=== PATIENT | male | born 1940 | race Caucasian/White ===

== ENCOUNTER → 2016-04-21 | Outpatient (CLI) | payer OTHER | LOC: FIMAGING 13:42 | PROVIDERS: ATTEND Neurological Surgery | DX: M50.321 Other cervical disc degeneration at C4-C5 level (principal); M50.322 Other cervical disc degeneration at C5-C6 level; M50.323 Other cervical disc degeneration at C6-C7 level; M12.88 Other specific arthropathies, not elsewhere classified, other specified site; M48.02 Spinal stenosis, cervical region; M99.71 Connective tissue and disc stenosis of intervertebral foramina of cervical region ==

== ENCOUNTER 2016-09-29 07:57 | Outpatient (CLI) | payer OTHER ==
[~2016-09-29 07:57] MED LIST: NS 1,000 ML IV SCH
[2016-09-29] MEDS ORDERED: fentaNYL 100 MCG/2 ML INJ ONE (08:11)
[2016-09-29] MEDS ORDERED: MIDAZOLAM 2 MG/2 ML VIAL ONE (08:11)
[2016-09-29] MEDS ORDERED: NALOXONE HCL 0.4 MG/ML INJ ONE (08:11)
[2016-09-29] MEDS ORDERED: FLUMAZENIL 0.5 MG/5 ML MDV IVP ONE (08:11)
== END 2016-09-29 10:20 | disposition home or self-care (01) ==
LOC: FIMAGING 07:57
PROVIDERS: ATTEND Physician Assistant Surgical
DX: M48.06 Spinal stenosis, lumbar region (principal); M51.26 Other intervertebral disc displacement, lumbar region; M12.88 Other specific arthropathies, not elsewhere classified, other specified site; M99.73 Connective tissue and disc stenosis of intervertebral foramina of lumbar region; M43.16 Spondylolisthesis, lumbar region
CPT/HCPCS: 72148; 99152; 99153; J2250; J3010; J2310

== ENCOUNTER 2016-10-29 05:46 | Inpatient (IN) | payer OTHER ==
[2016-10-29] MEDS ORDERED: ceFAZolin 2 GM/DEXTROSE 100 ML IV ONE (06:07)
[2016-10-29] MEDS ORDERED: GABAPENTIN 300 MG CAP PO ONE (06:07)
[2016-10-29] MEDS ORDERED: morphINE SR 15 MG TAB PO ONE (06:07)
[2016-10-29] MEDS ORDERED: morphINE PF 5 MG/10 ML INJ IT ONE (06:07)
[2016-10-29] MEDS ORDERED: ACETAMINOPHEN 500 MG TAB PO ONE (06:07)
[2016-10-29] MEDS ORDERED: LR 1,000 ML IV ONE (06:08)
[2016-10-29] MEDS ORDERED: LIDOCAINE 1% 2 ML INJ ID PRN (06:08)
--- NOTE | 2016-10-29 06:48 | PDANEPAE ---
ANE History of Present Illness 76 yo M w lumbar radiculopathy here for TLIF, hemilaminectomy ANE Past Medical History - Cardiovascular History Hx Hypertension: No Hx Arrhythmias: No Hx Chest Pain: No Hx Coronary Artery / Peripheral Vascular Disease: No Hx CHF / Valvular Disease: No Hx Palpitations: No - Pulmonary History Hx COPD: No Hx Asthma/Reactive Airway Disease: No Hx Recent Upper Respiratory Infection: No Hx Oxygen in Use at Home: No Hx Sleep Apnea: No Sleep Apnea Screening Result - Last Documented: Negative - Neurologic History Hx Cerebrovascular Accident: No Hx Seizures: No Hx Dementia: No Neurologic History Comment: remote hx migraines -ended 2011. - Endocrine History Hx Diabetes: No - Renal History Hx Renal Disorders: Yes Renal History Comment: Kidney stone 2006 - Liver History Hx Hepatic Disorders: No - Neurological & Psychiatric Hx Hx Neurological and Psychiatric Disorders: Yes Neurological / Psychiatric History Comment: occ low back pain w/R leg pain- since July 2015. minimal pain last 4 wks. 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 bilat shoulder pain - Chronic Pain History Chronic Pain: Yes (back,R leg) - Surgical History Prior Surgeries: knee surgeries 's,. Esophogus repair for Boerhaave Syndrome -2007. colonoscopy 2013, endoscopy. tonsillectomy child ANE Review of Systems Review of Systems: - Exercise capacity METS (RN): 4 METS ANE Patient History - Allergies Allergies/Adverse Reactions: No Known Allergies Allergy (Verified 10/13/16 15:49) - Home Medications Home medications: home medication list seen and reviewed Home Medications: Hydrocodone/Acetaminophen [King 7.5-325 Tablet] 1 each PO BID 09/28/16 [Last Taken 10/28/16] LORazepam [Ativan (*)] 2 mg PO HS 09/28/16 [Last Taken 10/28/16] Omeprazole [Prilosec 20 mg] 40 mg PO DAILY 09/28/16 [Last Taken 10/28/16] Zolpidem Tartrate [Ambien 10 mg] 10 mg PO HS 09/28/16 [Last Taken 10/28/16] traZODone [traZODONE 100MG (*)] 200 mg PO HS 09/28/16 [Last Taken 10/28/16] Gabapentin [Neurontin 400 MG (*)] 400 mg PO TID 10/07/16 [Last Taken 10/28/16] - NPO status NPO Status: no food or drink >8 hours NPO Since - Liquids (Date): 10/28/16 NPO Since - Liquids (Time): 22:00 NPO Since - Solids (Date): 10/28/16 NPO Since - Solids (Time): 18:30 - Anes Hx Anes Hx: no prior problems - Smoking Hx Smoking Status: Former smoker - Alcohol Use Alcohol Use: None - Family Anes Hx Family Anes Hx: none Family Hx Anesthesia Complications: none ANE Labs/Vital Signs - Vital Signs Vital Signs: reviewed preoperatively; see RN documention for details Height: 180.34 cm Weight: 77.564 kg ANE Physical Exam - Airway Neck exam: FROM Mallampati Score: Class 2 Mouth exam: normal dental/mouth exam - Pulmonary Pulmonary: no respiratory distress, clear to auscultation - Cardiovascular Cardiovascular: regular rate and rhythym, no murmur, rub, or gallop - ASA Status ASA Status: II ANE Anesthesia Plan Anesthesia Plan: general endotracheal anesthesia Lines/Monitors: arterial line
[2016-10-29] MEDS ORDERED: MIDAZOLAM 2 MG/2 ML VIAL IVP ONE (06:49)
--- NOTE | 2016-10-29 06:55 | PDHPUP ---
History & Physical Update H&P update statement: This history and physical update is based on an assessment of the patient which was completed after admission or registration (within 24 hours), but prior to the surgery/procedure. H&P update: H&P reviewed & patient examined, no change in patient's condition since H&P completed (Consents signed and site marked.)
[2016-10-29] MEDS ORDERED: BUPIVACAINE 0.25% 30 ML SDV ONE (06:56)
[2016-10-29] MEDS ORDERED: THROMBIN (BOVINE) 20,000 UNIT VIAL TP ONE (06:56)
[2016-10-29] MEDS ORDERED: CITRATE DEXTROSE SOLN 500 ML BAG ONE (06:56)
[2016-10-29] MEDS ORDERED: CHLORHEXIDINE GLUC HIBICLENS 118 ML BTL TP ONE (06:56)
[2016-10-29] MEDS ORDERED: BACITRACIN 50,000 UNITS/10 ML SYR IRR ONE (06:57)
[2016-10-29] MEDS ORDERED: morphINE PF 10 MG/10 ML INJ IT ONE (07:00)
[2016-10-29] MEDS ORDERED: fentaNYL 100 MCG/2 ML INJ ONE (07:04)
[2016-10-29] MEDS ORDERED: PROPOFOL 200 MG/20 ML VIAL ONE (07:04)
[2016-10-29] MEDS ORDERED: REMIFENTANIL HCL 1 MG VIAL ONE ×2 (07:04→09:44)
[2016-10-29] MEDS ORDERED: PROPOFOL/EMULSION 500 MG/50 ML BOTTLE IV ONE ×2 (07:05→09:44)
[2016-10-29] MEDS ORDERED: LIDOCAINE 2% 100 MG/5 ML SYR ONE (07:09)
[2016-10-29] MEDS ORDERED: ROCURONIUM 50 MG/5 ML VIAL ONE ×2 (07:09→08:14)
[2016-10-29] MEDS ORDERED: PHENYLEPHRINE 10 MG/ML SDV ONE (07:59)
[2016-10-29] MEDS ORDERED: DEXAMETHASONE 4 MG/ML VIAL ONE (08:37)
[2016-10-29] MEDS ORDERED: ONDANSETRON 4 MG/2 ML VIAL ONE (08:37)
[2016-10-29] MEDS ORDERED: ceFAZolin 1 GM VIAL ONE (11:01)
[2016-10-29] MEDS ORDERED: HYDROmorphONE/DILAUDID 2 MG/ML INJ ONE (11:14)
[2016-10-29] MEDS ORDERED: ONDANSETRON 4 MG/2 ML VIAL IVP PRN ×2 (11:47→11:59)
[2016-10-29] MEDS ORDERED: fentaNYL 100 MCG/2 ML INJ IVP PRN (11:47)
[2016-10-29] MEDS ORDERED: MEPERIDINE 25 MG/ML SYR IVP PRN (11:47)
[2016-10-29] MEDS ORDERED: HYDROmorphONE/DILAUDID 1 MG/ML INJ IVP PRN (11:47)
[2016-10-29] MEDS ORDERED: NALOXONE HCL 0.4 MG/ML INJ IVP PRN (11:47)
[2016-10-29] MEDS ORDERED: PROMETHAZINE HCL 25 MG/ML INJ IVP PRN (11:47)
--- NOTE | 2016-10-29 11:48 | POSTANESTH ---
Post Anesthetic Evaluation Cardiovascular Status: Normal, Stable, Similar to Pre-Op Cond Respiratory Status: Normal, Stable, Similar to Pre-op Cond. Level of Consciousness/Mental Status: Can Participate in Eval, Alert and Oriented Pain Control: Adequate, Prn Tx Ordered Nausea/Vomiting Control: Adequate, Prn Tx Ordered Complications Possibly Related to Anesthesia: None Noted
[2016-10-29] MEDS ORDERED: LACTULOSE 20 GM/30 ML UDCUP PO PRN (11:59)
[2016-10-29] MEDS ORDERED: METHOCARBAMOL 750 MG TAB PO PRN (11:59)
[2016-10-29] MEDS ORDERED: BISACODYL 10 MG SUPP PR PRN (11:59)
[2016-10-29] MEDS ORDERED: diphenhydrAMINE 25 MG CAP PO PRN (11:59)
[2016-10-29] MEDS ORDERED: MAGNESIUM HYDROXIDE 30 ML UDCUP PO PRN (11:59)
[2016-10-29] MEDS ORDERED: NS 1,000 ML IV SCH (12:00)
--- NOTE | 2016-10-29 12:31 | POSTOPPROG ---
Post Op Note Date of Operation: 10/29/16 Surgeon: Daron Clark Progressive Die Maker: Glo Dickerson PA-C Anesthesiologist: Lucero Anesthesia: GET(General Endotracheal) Pre-op Diagnosis: lumbar stenosis, radiculopathy Post-op Diagnosis: same Indication: nerve compression Procedure: L2/3/4 heminlaminectomies with L4-S1 TLIF and L4-S1 posterior fusion Findings: Please see dictation Inf/Abcess present in the surg proc area at time of surgery?: No Depth: Organ Space EBL: 50-100 Complications: none Drains: Jean Carlos Cuevas Specimen(s): none PA Addendum - Addendum .: S: Pt resting in bed, denies back or leg pain O: AAOx3 NAD VSS MAEx4 Motor 5/5 BUE/BLE Incision dressed cdi JPx1 A: 76 yo F s/p L2/3/4 heminlaminectomies with L4-S1 TLIF and L4-S1 posterior fusion P: PT/OT Pain management Brace when OOB TEDs, SCDS, lovenox POD#1 Post op xrays pending Duramorph given Follow ALEXIA drain output DC faith POD#1 Call NS with any issues D/w Dr Clark
[2016-10-29] MEDS: ceFAZolin 2 GM/DEXTROSE 100 ML IV SCH ×2 (14:23→21:30)
[2016-10-29] MEDS: ACETAMINOPHEN 500 MG TAB PO SCH ×2 (14:24→21:26)
[2016-10-29] MEDS: GABAPENTIN 400 MG CAP PO SCH ×2 (16:51→21:28)
--- NOTE | 2016-10-29 17:46 | GOP ---
[f rep st] OPERATIVE REPORT DATE OF OPERATION: 10/29/2016 SURGEON: Daron Clark MD BRIM PLATER: KEM Yang. ANESTHESIA: General. PREOPERATIVE DIAGNOSIS: 1. 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 2. Low back pain with lower extremity claudication. 3. Radiculopathy. 4. Treatment refractory to nonoperative intervention. POSTOPERATIVE DIAGNOSIS: 1. 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 2. Low back pain with lower extremity claudication. 3. Radiculopathy. 4. Treatment refractory to nonoperative intervention. PROCEDURE PERFORMED: 1. Posterior arthrodesis with approach to L2, L3, L4, L5, and S1. 2. Posterolateral fusion with bilateral pedicle screw placement at L4, L5, and S1 from the [employer] 4.75 Solera system. 3. Right-sided L2-L3 hemilaminotomy with mesial facetectomy and central decompression. 4. Right-sided L3-L4 hemilaminotomy with mesial facetectomy and central decompression. 5. Right-sided L4-L5 hemilaminotomy with mesial facetectomy, foraminotomy, nerve root decompression. 6. Right-sided L5-S1 hemilaminotomy with mesial facetectomy, foraminotomy, nerve root decompression. 7. Right-sided L4-5 transforaminal lumbar interbody fusion with a 7 x 26 mm titanium coated PEEK cage filled with morselized autograft and allograft. 8. Right-sided L5-S1 transforaminal lumbar interbody fusion with a 7 x 26 mm titanium coated PEEK cage filled with morselized autograft and allograft. 9. Posterolateral fusion on the left between L4 and S1 with morselized autograft and allograft. 10. Use of intraoperative 3D Stealth navigation. 11. Use of intraoperative fluoroscopy, less than 1 hour fluoroscopy time. 12. Use of neuromonitoring. 13. Use of operating microscope. 14. Injection of preservative-free intrathecal narcotics. FINDINGS: per imaging SPECIMENS: None. INDICATIONS: The patient is a 76-year-old gentleman who presented with lower extremity claudication and back pain. He had evidence of severe spinal stenosis at L2 through L4 with spondylosis L2 through S1. After a discussion of risks, benefits, and alternatives and of failing nonoperative intervention, we decided to proceed forth with surgery as described above. DESCRIPTION OF PROCEDURE: The patient was brought to the operating theater and underwent general endotracheal anesthesia without complications. Venodynes, ISA hose and the appropriate lines were placed by Anesthesia. He was flipped prone onto the Jean Carlos table and all bony processes inspected and padded. The lower lumbar region was prepped and draped in the usual sterile surgical fashion. A time-out was completed per protocol and the patient received antibiotics within 1 hour of incision. Using lateral fluoroscopy and a spinal needle, we then picked our entry point to the L2 through S1 levels. This was marked in the midline, and the incision infiltrated with Marcaine with epinephrine. The incision was taken down with the scalpel blade and using the monopolar, and taken down the midline through the lumbodorsal fascia and a bilateral subperiosteal dissection carried to the transverse processes of L4, L5, and S1. We also identified the right-sided L2 and L3 medial facet joints. Care was taken to preserve the left side L2-L3 and L3-L4. Deep retractors were placed to maintain our exposure. We attached the 3D Stealth navigation clamp to the spinous process of L4 and completed a 3D Stealth navigation spin. Using 3D Stealth navigation, we placed the steamboat pilot holes for the bilateral pedicle screws at L4, L5, and S1. All holes were manually palpated with no evidence of any cortical breaches. We then tapped and placed 6.5 x 55 mm screws on the left side at L4, bilaterally at L5 and bilaterally in the S1. A 6.5 x 45 mm screw was placed on the right side at L4 from the [employer] 4.75 Solera system. Another 3D Stealth navigation spin demonstrated good placement of the hardware. I did replace the bilateral S1 screws with 5 mm longer screws to make them bicortical. At this point, the microscope was brought into the field to assist with microscopic dissection and to maintain illumination and magnification. Using a combination of the bur tip and on the drill but and Kerrison punches, we completed a right-sided L2-L3 and L3-L4 hemilaminotomy with mesial facetectomy and central resection of the ligamentum flavum. Once we felt that both these levels were well decompressed on manual palpation, we moved down to L4-L5 and L5-S1 where we completed a right-sided hemilaminotomy with mesial facetectomy and foraminotomies with resection of the pars between L4-5 and L5- S1. We moved down to L4-L5 where we distracted the interspace and completed a right-side L4-L5 diskectomy. The level was noted to be extremely tight. We completed a right-sided L4-L5 diskectomy and prepared the cartilaginous endplates. We then measured the interbody space and placed a 7 x 26 mm titanium coated PEEK cage filled with morselized autograft and allograft anteriorly towards the midline. We packed additional morcellized autograft in the disk space for the interbody fusion and let down the distraction. We moved down to the right side at L5-S1 where again we completed a right-sided L5-S1 diskectomy. This level was extremely tight as well and we had a difficult time distracting it. We completed a right-sided L5-S1 diskectomy and prepared the cartilaginous endplates. We measured the interbody space and placed a 7 x 26 mm titanium-coated PEEK cage filled with morselized autograft and allograft anteriorly and toward the midline. We let down the distraction, decorticated the bone on the left side between L4 and S1. We irrigated the wound copiously with bacitracin irrigation and placed 2 lordotic rods into the heads of the screws between L4 and S1 and secured them down with cap screws, which were then tightened per the banquet captain's setting. We injected preservative-free intrathecal narcotics. We placed morselized autograft and allograft on the left side between L4 and S1 for the posterolateral fusion. A drain was left in the subfascial space and the wound then closed in multiple layers using Vicryl sutures for the deep layers and Dermabond for the skin. The patient's wounds were dressed sterilely. He was flipped supine onto the transport cart where he was awakened, extubated, and taken to the recovery room in stable condition. There were no complications and no noted changes on neuromonitoring throughout the procedure. COMPLICATIONS: None. ESTIMATED FLUID LOSS: 100 mL. /[id number]/MODL MTDD
[2016-10-29] MEDS: oxyCODONE IR 5 MG TAB PO PRN (20:04)
[2016-10-29] MEDS ORDERED: NON-FORMULARY NEW DRUG (Zolpidem Tartrate [Ambien 10 Mg] 10 MG) PO SCH (21:00)
[2016-10-29] MEDS: traZODone 100 MG TAB PO SCH (21:27)
[2016-10-29] MEDS: SENNOSIDES/DOCUSATE SODIUM TAB PO SCH (21:27)
[2016-10-29] MEDS: ZOLPIDEM TARTRATE 5 MG TAB PO SCH (21:28)
[2016-10-29] MEDS: FAMOTIDINE 20 MG TAB PO SCH (21:28)
[2016-10-29] MEDS: LORazepam 1 MG TAB PO SCH (21:29)
[2016-10-30] MEDS: ONDANSETRON DISINTEGRATING 4 MG TAB PO PRN (02:39)
[2016-10-30] MEDS: ACETAMINOPHEN 500 MG TAB PO SCH (04:57)
[2016-10-30] MEDS ORDERED: PROMETHAZINE HCL 25 MG/ML INJ IVP PRN (05:24)
[2016-10-30] MEDS: GABAPENTIN 400 MG CAP PO SCH ×3 (08:40→21:03)
[2016-10-30] MEDS: FAMOTIDINE 20 MG TAB PO SCH ×2 (08:41→21:03)
[2016-10-30] MEDS: ENOXAPARIN 40 MG/0.4 ML SYR SC SCH (08:41)
[2016-10-30] MEDS: SENNOSIDES/DOCUSATE SODIUM TAB PO SCH ×2 (08:41→21:03)
[2016-10-30] MEDS: PANTOPRAZOLE SODIUM 40 MG TAB PO SCH (08:41)
--- NOTE | 2016-10-30 08:44 | NEUSURGPN ---
Date of Surgery: 10/29/16 Post Op Day: 1 Assessment/Plan: 76 yo male s/p TLIF at L4-S1 - neuro stable - pain control, try [place] instead of Oxycodone due to nausea - antiemetics - ALEXIA drain x 1, will plan to remove tomorrow - postop L-spine x-rays - wear brace when out of bed - PT/OT - please contact neurosurgery with any changes in neuro status/exam Discussed with Dr. Clark. Subjective: [place] nauseated all night. Surgical pain controlled. No LE symptoms. Objective: Awake. Alert. PERRL. EOMI Muscle strength full at 5/5 Sensation intact Incision with dressing Catheter Insertion Date: 10/29/16 - Physician Discussed Patient with : Eduardo Neurosurgery Physical Exam - Vitals, I&O, Labs I and O 10/29/16 10/30/16 10/31/16 05:59 05:59 05:59 Intake Total 1875 Output Total 1575 Balance 300 Weight 77.564 kg Intake: Oral (ml) 500 IV Intake (ml) 500 IV Infused (ml) 875 Ns 1,000 ml @ 75 mls/hr 675 IV CONT JENNA Rx#: [id number] ceFAZolin 2 GM/DEXTROSE 200 100 ml @ 200 mls/hr IV Q8HRS JENNA Rx#:[id number] Output: Urine (ml) 800 Catheter 800 Emesis (ml) 500 ALEXIA Drain Output (ml) 275 Back 275 Vital Signs Temp Pulse Resp BP Pulse Ox 36.9 C 75 16 108/67 93 10/30/16 07:44 10/30/16 07:44 10/30/16 07:44 10/30/16 07:44 10/30/16 07:44 ICD10 Worksheet Patient Problems: Problems Problem Status Onset Lumbar stenosis Acute - ICD10 Problem Qualifiers (1) Lumbar stenosis
[2016-10-30] MEDS ORDERED: NON-FORMULARY NEW DRUG (Omeprazole [Prilosec 20 Mg] 40 MG) PO SCH (09:00)
[2016-10-30] MEDS: HYDROCODONE/APAP 5/325 TAB PO PRN ×3 (10:02→19:09)
--- NOTE | 2016-10-30 16:55 | ASMTCMCOM ---
CM Note CM Note Notes: Pt is a 76 y/o man admitted w/ central shoxs, back pain, djd, and spondylolisthesis. Pt had L2/3/4 heminlaminectomies with L4-S1 TLIF and L4-S1 posterior fusion procedure performed on 10/29/16. Pt had another surgerical intervention today (L2/3/5 hemilaminectomy with central decompression, TLIF Lum M[place] Fusion W/Stealth L4/L5/S1 with PSF L4-S1 with neuro monitoring. CM met w/ pt and for dispo planning. PT is recommending HC. OT is recommending home. Pt and would like to have HC through [facility]. CM to follow. Date Signed: 10/30/2016 04:54 PM Electronically Signed By:MOISES Lara
[2016-10-30] MEDS: traZODone 100 MG TAB PO SCH (21:02)
[2016-10-30] MEDS: ZOLPIDEM TARTRATE 5 MG TAB PO SCH (21:03)
[2016-10-30] MEDS: LORazepam 1 MG TAB PO SCH (21:03)
[2016-10-31] MEDS: HYDROCODONE/APAP 5/325 TAB PO PRN ×4 (03:52→20:08)
--- NOTE | 2016-10-31 06:35 | NEUSURGPN ---
Date of Surgery: 10/29/16 Post Op Day: 2 Assessment/Plan: 76 yo male s/p TLIF at L4-S1 - neuro stable -Patient feels his pain is controlled with current medications -May discharge home later this AM pending PT/OT recommendations -ALBERT HALE today - L-spine x-rays stable - Wear brace when out of bed - PT/OT - please contact neurosurgery with any changes in neuro status/exam Subjective: Patient feeling well this am Objective: Objective: Awake. Alert. PERRL. EOMI Muscle strength full at 5/5 Sensation intact Incision with dressing Neuro Check Frequency: per routine Urinary Catheter in Place: No Catheter Insertion Date: 10/29/16 - Physician Discussed Patient with : Eduardo Neurosurgery Physical Exam - Vitals, I&O, Labs I and O 10/30/16 10/31/16 11/01/16 05:59 05:59 05:59 Intake Total 1875 550 Output Total 1575 765 Balance 300 -215 Weight 77.564 kg Intake: Oral (ml) 500 550 IV Intake (ml) 500 IV Infused (ml) 875 Ns 1,000 ml @ 75 mls/hr 675 IV CONT JENNA Rx#: [id number] ceFAZolin 2 GM/DEXTROSE 200 100 ml @ 200 mls/hr IV Q8HRS JENNA Rx#:[id number] Output: Urine (ml) 800 725 Catheter 800 Urinal 725 Emesis (ml) 500 ALEXIA Drain Output (ml) 275 40 Back 275 40 Other: Number of Voids Toilet 2 Urinal 1 Vital Signs Temp Pulse Resp BP Pulse Ox 36.9 C 86 16 90/59 L 91 L 10/31/16 04:00 10/31/16 04:00 10/31/16 04:00 10/31/16 04:00 10/31/16 04:00 ICD10 Worksheet Patient Problems: Problems Problem Status Onset Lumbar stenosis Acute
[2016-10-31] MEDS: ENOXAPARIN 40 MG/0.4 ML SYR SC SCH (08:07)
[2016-10-31] MEDS: GABAPENTIN 400 MG CAP PO SCH ×3 (08:08→21:12)
[2016-10-31] MEDS: FAMOTIDINE 20 MG TAB PO SCH ×2 (08:08→20:08)
[2016-10-31] MEDS: SENNOSIDES/DOCUSATE SODIUM TAB PO SCH ×2 (08:08→20:08)
[2016-10-31] MEDS: PANTOPRAZOLE SODIUM 40 MG TAB PO SCH (08:08)
[2016-10-31] MEDS: DIAZEPAM 10 MG/2 ML SYR IVP PRN (10:56)
[2016-10-31] MEDS: METHOCARBAMOL 750 MG TAB PO SCH ×2 (11:33→20:07)
[2016-10-31] MEDS: oxyCODONE IR 5 MG TAB PO PRN (12:05)
[2016-10-31] MEDS: ONDANSETRON DISINTEGRATING 4 MG TAB PO PRN (12:30)
[2016-10-31] MEDS: POLYETHYLENE GLYCOL 3350 17 GM PKT PO PRN (15:45)
[2016-10-31] MEDS: traZODone 100 MG TAB PO SCH (20:07)
[2016-10-31] MEDS: LORazepam 1 MG TAB PO SCH (21:12)
[2016-10-31] MEDS: ZOLPIDEM TARTRATE 5 MG TAB PO SCH (21:12)
[2016-11-01] MEDS: HYDROCODONE/APAP 5/325 TAB PO PRN ×2 (02:18→08:21)
[2016-11-01] MEDS: METHOCARBAMOL 750 MG TAB PO SCH ×3 (03:25→20:16)
[2016-11-01] MEDS: GABAPENTIN 400 MG CAP PO SCH (08:21)
[2016-11-01] MEDS: ENOXAPARIN 40 MG/0.4 ML SYR SC SCH (08:21)
[2016-11-01] MEDS: SENNOSIDES/DOCUSATE SODIUM TAB PO SCH ×2 (08:22→20:15)
[2016-11-01] MEDS: FAMOTIDINE 20 MG TAB PO SCH ×2 (08:22→20:15)
[2016-11-01] MEDS: PANTOPRAZOLE SODIUM 40 MG TAB PO SCH (08:22)
[2016-11-01] MEDS: oxyCODONE IR 5 MG TAB PO PRN ×3 (12:32→20:17)
--- NOTE | 2016-11-01 13:05 | NEUSURGPN ---
Date of Surgery: 10/29/16 Post Op Day: 3 Assessment/Plan: 76 yo male s/p TLIF at L4-S1 -Patient was going to dc home yesterday, after working with PT has been experiencing severe right buttock and right lateral leg pain -We do not recommend a new MRI at this time -Will give patient one dose Toradol today -Will increase gabapentin dose -Will try Diludid today to help manage pain of right leg -L-spine x-rays stable -Wear brace when out of bed -PT/OT -please contact neurosurgery with any changes in neuro status/exam Spoke with Dr Clark about patient as well Subjective: Patient in 11/17 pain of right leg Objective: Awake. Alert. PERRL. EOMI Muscle strength full at 5/5 Sensation intact Incision with dressing Neuro Check Frequency: per routine Urinary Catheter in Place: No Catheter Insertion Date: 10/29/16 - Physician Discussed Patient with Dr.: Clark Neurosurgery Physical Exam - Vitals, I&O, Labs I and O 10/31/16 11/01/16 11/02/16 05:59 05:59 05:59 Intake Total 550 550 Output Total 765 510 525 Balance -215 40 -525 Intake: Oral (ml) 550 550 Output: Urine (ml) 725 500 525 Urinal 725 500 525 ALEXIA Drain Output (ml) 40 10 Back 40 10 Other: Output Comment Incontinence inc of urine x1 overnight in bed Number of Voids Incontinence 1 Toilet 2 Urinal 1 1 2 Vital Signs Temp Pulse Resp BP Pulse Ox 37.1 C 90 16 105/65 89 L 11/01/16 07:47 11/01/16 11:44 11/01/16 11:44 11/01/16 11:44 11/01/16 11:44 ICD10 Worksheet Patient Problems: Problems Problem Status Onset Lumbar stenosis Acute
[2016-11-01] MEDS ORDERED: KETOROLAC 15 MG/1 ML SDV IVP ONE (13:06)
[2016-11-01] MEDS ORDERED: HYDROmorphONE/DILAUDID 1 MG/ML INJ IVP PRN (13:07)
[2016-11-01] MEDS ORDERED: GABAPENTIN 400 MG CAP PO SCH (13:08)
[2016-11-01] MEDS: oxyCODONE CR 15 MG TAB PO SCH ×2 (13:34→20:17)
[2016-11-01] MEDS: GABAPENTIN 300 MG CAP PO SCH ×2 (15:53→21:44)
[2016-11-01] MEDS: POLYETHYLENE GLYCOL 3350 17 GM PKT PO PRN (20:15)
[2016-11-01] MEDS: traZODone 100 MG TAB PO SCH (21:43)
[2016-11-01] MEDS: LORazepam 1 MG TAB PO SCH (21:43)
[2016-11-01] MEDS: ZOLPIDEM TARTRATE 5 MG TAB PO SCH (21:44)
[2016-11-02] MEDS: oxyCODONE IR 5 MG TAB PO PRN ×4 (00:05→23:13)
[2016-11-02] MEDS: METHOCARBAMOL 750 MG TAB PO SCH ×3 (04:27→18:41)
--- NOTE | 2016-11-02 07:21 | NEUSURGPN ---
Assessment/Plan: 76 yo male s/p TLIF at L4-S1, with increased low back pain - Increased low back pain and medications are not covering pain, Dilaudid helped over night. Will try PO Dilaudid this morning -Will give patient one dose Toradol today -L-spine x-rays stable -Wear brace when out of bed -PT/OT -please contact neurosurgery with any changes in neuro status/exam -Dispo planning once pain under better control Subjective: low back pain, Dilaudid overnight helped Objective: NAD A&O x3 MAEX 4 5/5 and equal in BEU and BLE. Sensation intact. Incision c/d/i Catheter Insertion Date: 10/29/16 - Physician Discussed Patient with : Eduardo Neurosurgery Physical Exam - Vitals, I&O, Labs I and O 11/01/16 11/02/16 11/03/16 05:59 05:59 05:59 Intake Total 550 750 Output Total 510 525 Balance 40 225 Intake: Oral (ml) 550 750 Output: Urine (ml) 500 525 Urinal 500 525 ALEXIA Drain Output (ml) 10 Back 10 Other: Intake Quantity Yes Sufficient Output Comment Incontinence inc of urine x1 overnight in bed Number of Voids Incontinence 1 Toilet 1 Urinal 1 2 Vital Signs Temp Pulse Resp BP Pulse Ox 36.6 C 77 17 112/69 92 11/02/16 04:00 11/02/16 04:00 11/02/16 04:00 11/02/16 04:00 11/02/16 04:00 ICD10 Worksheet Patient Problems: Problems Problem Status Onset Lumbar stenosis Acute
[2016-11-02] MEDS: ENOXAPARIN 40 MG/0.4 ML SYR SC SCH (08:06)
[2016-11-02] MEDS: PANTOPRAZOLE SODIUM 40 MG TAB PO SCH (08:06)
[2016-11-02] MEDS: SENNOSIDES/DOCUSATE SODIUM TAB PO SCH ×2 (08:06→20:54)
[2016-11-02] MEDS: FAMOTIDINE 20 MG TAB PO SCH ×2 (08:07→20:54)
[2016-11-02] MEDS: GABAPENTIN 300 MG CAP PO SCH ×3 (08:07→20:54)
[2016-11-02] MEDS: oxyCODONE CR 15 MG TAB PO SCH ×2 (08:07→20:54)
[2016-11-02] MEDS: HYDROmorphONE/DILAUDID 2 MG TAB PO PRN ×3 (09:50→14:19)
[2016-11-02] MEDS: ACETAMINOPHEN 500 MG TAB PO SCH ×3 (11:33→20:55)
[2016-11-02] MEDS: LORazepam 1 MG TAB PO SCH (20:55)
[2016-11-02] MEDS: traZODone 100 MG TAB PO SCH (20:55)
[2016-11-02] MEDS: ZOLPIDEM TARTRATE 5 MG TAB PO SCH (20:55)
[2016-11-03] MEDS: oxyCODONE IR 5 MG TAB PO PRN ×2 (03:23→12:51)
[2016-11-03] MEDS: ACETAMINOPHEN 500 MG TAB PO SCH ×3 (05:49→21:10)
--- NOTE | 2016-11-03 07:59 | NEUSURGPN ---
Assessment/Plan: 76 yo male s/p TLIF at L4-S1, with increased low back pain - Increased low back pain and medications are not covering pain, Dilaudid helped over night. Will try PO Dilaudid this morning -Patient on Dilaudid, Robaxin, MsContin, will add in Lidoderm patches. -L-spine x-rays stable -Wear brace when out of bed -PT/OT -please contact neurosurgery with any changes in neuro status/exam -Dispo planning once pain under better control - Patient was seen by Dr. Clark and myself Subjective: right gluteal pain, Denies any left leg pain Objective: NAD A&Ox3 MAEx4 5/5 and equal in BUE and BLE. Incision c/d/i Catheter Insertion Date: 10/29/16 - Physician Patient Seen by : Eduardo Neurosurgery Physical Exam - Vitals, I&O, Labs I and O 11/02/16 11/03/16 11/04/16 05:59 05:59 05:59 Intake Total 750 2000 Output Total 525 600 Balance 225 1400 Intake: Oral (ml) 750 2000 Output: Urine (ml) 525 600 Incontinence 600 Urinal 525 Other: Intake Quantity Yes Yes Sufficient Number of Voids Incontinence 1 Toilet 1 Urinal 2 Vital Signs Temp Pulse Resp BP Pulse Ox 36.9 C 92 16 144/92 H 97 11/03/16 02:57 11/03/16 02:57 11/03/16 02:57 11/03/16 02:57 11/03/16 02:57 ICD10 Worksheet Patient Problems: Problems Problem Status Onset Lumbar stenosis Acute
[2016-11-03] MEDS: LIDOCAINE 5% 1 EA PATCH TD SCH ×2 (10:01→10:11)
[2016-11-03] MEDS: ENOXAPARIN 40 MG/0.4 ML SYR SC SCH (10:02)
[2016-11-03] MEDS: oxyCODONE CR 15 MG TAB PO SCH (10:03)
[2016-11-03] MEDS: FAMOTIDINE 20 MG TAB PO SCH ×2 (10:03→21:05)
[2016-11-03] MEDS: PANTOPRAZOLE SODIUM 40 MG TAB PO SCH (10:03)
[2016-11-03] MEDS: HYDROmorphONE/DILAUDID 2 MG TAB PO PRN ×4 (10:03→21:08)
[2016-11-03] MEDS: SENNOSIDES/DOCUSATE SODIUM TAB PO SCH ×2 (10:03→21:11)
[2016-11-03] MEDS: GABAPENTIN 300 MG CAP PO SCH ×3 (10:03→21:10)
--- NOTE | 2016-11-03 14:01 | ASMTCMCOM ---
CM Note CM Note Notes: Yesterday [facility] ([facility] was alerted in case pt needs HHC. CM to follow. Date Signed: 11/03/2016 02:00 PM Electronically Signed By:SARY Newell
[2016-11-03] MEDS ORDERED: GABAPENTIN 300 MG CAP PO ONE (18:45)
[2016-11-03] MEDS: METHOCARBAMOL 750 MG TAB PO SCH (21:07)
[2016-11-03] MEDS: traZODone 100 MG TAB PO SCH (21:08)
[2016-11-03] MEDS: LORazepam 1 MG TAB PO SCH (21:09)
[2016-11-03] MEDS: ZOLPIDEM TARTRATE 5 MG TAB PO SCH (21:10)
[2016-11-03] MEDS: oxyCODONE CR 30 MG TAB PO SCH (21:10)
[2016-11-03] MEDS: PATCH REMOVAL 1 EA PATCH TD SCH (21:20)
[2016-11-04] MEDS: METHOCARBAMOL 750 MG TAB PO SCH ×4 (00:41→18:18)
[2016-11-04] MEDS: HYDROmorphONE/DILAUDID 2 MG TAB PO PRN ×2 (01:53→22:49)
[2016-11-04] MEDS: ACETAMINOPHEN 500 MG TAB PO SCH ×3 (06:29→21:17)
--- NOTE | 2016-11-04 07:51 | NEUSURGPN ---
Date of Surgery: 10/29/16 Post Op Day: 6 Assessment/Plan: Assessment: 76 yo male s/p TLIF at L4-S1, with increased low back pain after surgery Plan: - Increased low back pain yesterday and medications were not covering pain. Medications adjusted and pt is much better today than yesterday. "I am 150% better" -CT of the L spine shows no complications and expected post op changes with degenerative changes noted-c/w hx -continue with current pain medication plan as he is doing better overall -continue with pain meds and gabapentin -L-spine x-rays stable -Wear brace when out of bed -PT/OT-CPM -encourage ambulation today -please contact neurosurgery with any changes in neuro status/exam -Dispo planning once pain under better control -if continues to improve may be able to dc in next few days -patient d/w Dr Clark Subjective: Awake and alert. NAD. No new events overnight. No hernandez/neck/chest/abd or gu complaints. Objective: AAO x 3, PERRLA/EOMI no droop CN 2-12 grossly intact +lt touch 5/5 BUE/BLE = CDI Neuro Check Frequency: per routine Urinary Catheter in Place: No Catheter Insertion Date: 10/29/16 - Physician Discussed Patient with : Eduardo Neurosurgery Physical Exam - Vitals, I&O, Labs I and O 11/03/16 11/04/16 11/05/16 05:59 05:59 05:59 Intake Total 2000 1350 Output Total 600 1475 Balance 1400 -125 Intake: Oral (ml) 2000 1350 Output: Urine (ml) 600 1475 Incontinence 600 0 Urinal 1475 Other: Intake Quantity Yes Yes Sufficient Number of Voids Incontinence 1 Urinal 1 Vital Signs Temp Pulse Resp BP Pulse Ox 36.6 C 76 14 133/74 H 97 11/03/16 22:35 11/03/16 22:35 11/03/16 22:35 11/03/16 22:35 11/03/16 22:35 ICD10 Worksheet Patient Problems: Problems Problem Status Onset Lumbar stenosis Acute
[2016-11-04] MEDS: oxyCODONE IR 5 MG TAB PO PRN ×4 (08:22→21:18)
[2016-11-04] MEDS: POLYETHYLENE GLYCOL 3350 17 GM PKT PO PRN (08:22)
[2016-11-04] MEDS: FAMOTIDINE 20 MG TAB PO SCH ×2 (08:23→21:20)
[2016-11-04] MEDS: SENNOSIDES/DOCUSATE SODIUM TAB PO SCH ×2 (08:23→21:20)
[2016-11-04] MEDS: PANTOPRAZOLE SODIUM 40 MG TAB PO SCH (08:23)
[2016-11-04] MEDS: oxyCODONE CR 30 MG TAB PO SCH ×2 (08:23→21:19)
[2016-11-04] MEDS: GABAPENTIN 300 MG CAP PO SCH ×3 (08:23→21:17)
[2016-11-04] MEDS: ENOXAPARIN 40 MG/0.4 ML SYR SC SCH (08:24)
[2016-11-04] MEDS: LIDOCAINE 5% 1 EA PATCH TD SCH (08:24)
[2016-11-04] MEDS: DIAZEPAM 5 MG TAB PO PRN (15:00)
[2016-11-04] MEDS: ZOLPIDEM TARTRATE 5 MG TAB PO SCH (21:18)
[2016-11-04] MEDS: traZODone 100 MG TAB PO SCH (21:18)
[2016-11-04] MEDS: LORazepam 1 MG TAB PO SCH (21:18)
[2016-11-04] MEDS: DIAZEPAM 10 MG/2 ML SYR IVP PRN (22:49)
[2016-11-05] MEDS: METHOCARBAMOL 750 MG TAB PO SCH ×3 (00:15→12:58)
[2016-11-05] MEDS: PATCH REMOVAL 1 EA PATCH TD SCH (00:28)
[2016-11-05] MEDS: oxyCODONE IR 5 MG TAB PO PRN ×3 (01:28→15:33)
[2016-11-05] MEDS: DIAZEPAM 5 MG TAB PO PRN (03:00)
[2016-11-05] MEDS: HYDROmorphONE/DILAUDID 2 MG TAB PO PRN (05:22)
[2016-11-05] MEDS: ACETAMINOPHEN 500 MG TAB PO SCH ×2 (05:23→12:58)
[2016-11-05] MEDS: GABAPENTIN 300 MG CAP PO SCH ×3 (05:24→15:33)
--- NOTE | 2016-11-05 07:40 | NEUSURGPN ---
Assessment/Plan: Assessment: 76 yo male s/p TLIF at L4-S1, with increased low back pain after surgery Plan: - Increased low back pain yesterday and medications were not covering pain. Medications adjusted. Pt had a good day yesterday but severe pain overnight. -CT of the L spine shows no complications and expected post op changes with degenerative changes noted-c/w hx -continue with current pain medication plan - DC IV meds -continue with pain meds and gabapentin -L-spine x-rays stable -Wear brace when out of bed -PT/OT-CPM -encourage ambulation today -please contact neurosurgery with any changes in neuro status/exam -Dispo planning once pain under better control -if continues to improve may be able to dc in next few days -patient d/w Dr Clark Subjective: Pt resting in bed, c/o right leg pain overnight. Comfortable at this time reclined in bed. Objective: AAOx3 NAD VSS MAEx4 Motor 5/5 BLE with exception of R EHL 5-/5 +LT Urinary Catheter in Place: No Catheter Insertion Date: 10/29/16 - Physician Discussed Patient with : Eduardo Neurosurgery Physical Exam - Vitals, I&O, Labs I and O 11/04/16 11/05/16 11/06/16 05:59 05:59 05:59 Intake Total 1350 1000 Output Total 1475 300 Balance -125 700 Intake: Oral (ml) 1350 1000 Output: Urine (ml) 1475 300 Incontinence 0 Urinal 1475 300 Other: Intake Quantity Yes Yes Sufficient Number of Voids Toilet 1 Urinal 1 Number of Stools Toilet 1 Vital Signs Temp Pulse Resp BP Pulse Ox 36.8 C 90 16 133/85 H 95 11/04/16 23:55 11/04/16 23:55 11/04/16 23:55 11/04/16 23:55 11/04/16 23:55 ICD10 Worksheet Patient Problems: Problems Problem Status Onset Lumbar stenosis Acute
[2016-11-05 07:59] VITALS: PULSE 71; RESP 14; TEMP 98.1; O2SAT 97
[2016-11-05] MEDS: FAMOTIDINE 20 MG TAB PO SCH (09:59)
[2016-11-05] MEDS: oxyCODONE CR 30 MG TAB PO SCH (09:59)
[2016-11-05] MEDS: ENOXAPARIN 40 MG/0.4 ML SYR SC SCH (09:59)
[2016-11-05] MEDS: SENNOSIDES/DOCUSATE SODIUM TAB PO SCH (10:00)
[2016-11-05] MEDS: PANTOPRAZOLE SODIUM 40 MG TAB PO SCH (10:00)
[2016-11-05] MEDS: LIDOCAINE 5% 1 EA PATCH TD SCH (10:00)
[2016-11-05 12:07] VITALS: BP 78/54
--- NOTE | 2016-11-05 13:37 | PDIAF ---
- Diagnosis Code Status: Full Code - Medication Management Discharge Medications: Medications to Continue on Transfer LORazepam [Ativan (*)] 2 mg PO HS 09/28/16 [Last Taken 10/28/16] Omeprazole [Prilosec 20 mg] 40 mg PO DAILY 09/28/16 [Last Taken 10/28/16] Zolpidem Tartrate [Ambien 10 mg] 10 mg PO HS 09/28/16 [Last Taken 10/28/16] traZODone [traZODONE 100MG (*)] 200 mg PO HS 09/28/16 [Last Taken 10/28/16] Acetaminophen [Tylenol ES 500 mg (*)] 1,000 mg PO Q8 tab 11/05/16 [Last Taken Unknown] Diazepam [Valium 5 MG (*)] 5 mg PO Q4 PRN #90 tab 11/05/16 [Last Taken Unknown] Gabapentin [Neurontin 300 MG (*)] 600 mg PO QID #120 cap 11/05/16 [Last Taken Unknown] oxyCODONE CR [Oxycontin] 30 mg PO BID #60 tab 11/05/16 [Last Taken Unknown] oxyCODONE IR [Oxycodone Ir (*)] 5 - 10 mg PO Q4HRS PRN #90 tab 11/05/16 [Last Taken Unknown] tiZANidine HCL [Zanaflex] 4 mg PO Q8 PRN #60 tab 11/05/16 [Last Taken Unknown] Discharge Medications: Refer to the Discharge Home Medication list for PRN reason. PICC Care - Routine: N/A - Orders Services needed: Home Care, Registered Nurse, Physical Therapy, Occupational Therapy Home Care Face to Face: I certify that this patient was under my care and that I had the required [id number] encounter meeting the encounter requirements on the discharge day. My findings support the fact that the patient is homebound as defined in Home Care Face to Face Continued: CMS Chapter 7 Medicare Benefits Manual 30.1.1 , The condition of the patient is such that there exists a normal inability to leave home and consequently, leaving home would require a considerable and taxing effort. Diet Recommendation: no restrictions on diet Diet Texture: Regular Texture Diet Miller: Not applicable Wound Care Instructions: keep incision clean and dry Activity/Weight Bearing Restrictions: 5-10 lbs. no bending lifting or twisting. wear brace when out of bed - Follow Up Care Current Providers and Referrals: Aston Bishop MD [Primary Care Provider] - Daron Clark MD [Medical Doctor] - follow up in 2 weeks
--- NOTE | 2016-11-05 16:22 | ASMTCMCOM ---
CM Note CM Note Notes: Pt medically stable for d/c w [facility] and support. Date Signed: 11/05/2016 04:21 PM Electronically Signed By:SARY Newell
--- NOTE | 2016-11-06 15:20 | ASDISCHSUM ---
Discharge Information Plan Status:Home with Home Health Medically Cleared to Leave: Discharge Date:11/05/2016 04:47 PM CM D/C Disposition:Home Health Service ADT D/C Disposition:Home Health Service Projected Discharge Date:11/03/2016 11:00 AM Transportation at D/C: Discharge Delay Reason: Follow-Up Date:11/03/2016 11:00 AM Discharge Slot: Final Diagnosis: Placement Information Referral Type:*Home Health Care Services Referral ID:[id number] Provider Name:[facility] Address 1:[address] Address 2: City:[place] Selection Factors: State:[place] Patient Contact Information Contact Name:CORY Relationship:Son Address:[address] Work Phone: City:[place] Alternate Phone: State/Zip Code:[place] [address] Email: Financial Information Financial Class: Primary Plan Desc:MEDICARE INPATIENT Primary Plan Number:[id number] Secondary Plan Desc: [employer] Secondary Plan Number:[id number] Assessment Information [facility] CM Progress Note CM Note CM Note Notes: Pt is a 76 y/o man admitted w/ central shoxs, back pain, djd, and spondylolisthesis. Pt had L2/3/4 heminlaminectomies with L4-S1 TLIF and L4-S1 posterior fusion procedure performed on 10/29/16. Pt had another surgerical intervention today (L2/3/5 hemilaminectomy with central decompression, TLIF Lum Mccullough Fusion W/Stealth L4/L5/S1 with PSF L4-S1 with neuro monitoring. CM met w/ pt and for dispo planning. PT is recommending HC. OT is recommending home. Pt and would like to have HC through [facility]. CM to follow. Date Signed: 10/30/2016 04:54 PM Electronically Signed By:MOISES Lara BC CM Progress Note CM Note CM Note Notes: Yesterday [facility] ([place]) was alerted in case pt needs C. CM to follow. Date Signed: 11/03/2016 02:00 PM Electronically Signed By:SARY Newell [facility] CM Progress Note CM Note CM Note Notes: Pt medically stable for d/c w [facility] and support. Date Signed: 11/05/2016 04:21 PM Electronically Signed By:SARY Newell Intervention Information Intervention Type:*IM-Signed Date of Service:11/05/2016 12:16 PM Patient Type:Inpatient Staff Member:Rahda Yousif Hours: Discipline: Severity: Comment:
== END 2016-11-05 16:47 | disposition home health service (06) | DRG 460 ==
LOC: F3N 05:46
PROVIDERS: ADMIT Neurological Surgery; ATTEND Neurological Surgery
DX: M47.26 Other spondylosis with radiculopathy, lumbar region (principal); M48.06 Spinal stenosis, lumbar region; M48.02 Spinal stenosis, cervical region; I10 Essential (primary) hypertension; K21.0 Gastro-esophageal reflux disease with esophagitis
CPT/HCPCS: 97116-GP; 97161-GP; 97165-GO; 97530-GO; 97535-GO; C1713; G8978-GP-CI; G8978-GP-CJ; G8979-GP-CI; G8980-GP-CI; G8987-GO-CI; G8987-GO-CJ; G8988-GO-CI; G8989-GO-CI; J0171; J0690; J1100; J1170; J1650; J1885; J2001; J2250; J2274; J2370; J2405; J2704; J3010; J7060

== ENCOUNTER 2016-11-07 22:57 | Emergency (ER) | payer OTHER ==
[2016-11-07 23:35] LABS: % IMMATURE GRANULYOCYTES 0.9 % (0.0-1.1); ABSOLUTE IMMATURE GRANULOCYTES 0.11 10^3/uL (0.00-0.10); ADD DIFF? NO; ADD MORPH? NO; ADD SCAN? NO; ATYPICAL LYMPHOCYTE FLAG 10 (0-99); FRAGMENT RBC FLAG 0 (0-99); HEMATOCRIT 37.7 % (40.0-51.0); HEMOGLOBIN 12.8 g/dL (13.7-17.5); LEFT SHIFT FLG 0 (0-99); LIPEMIA HEMOLYSIS FLAG 90 (0-99); MEAN CELL HEMOGLOBIN 33.2 pg (27.9-34.1); MEAN CELL VOLUME 97.7 fL (81.5-99.8); MEAN PLATELET VOLUME 9.6 fL (8.7-11.7); PLATELET CLUMPS FLAG 0 (0-99); PLATELET COUNT 427 10^3/uL (150-400); RED BLOOD CELL COUNT 3.86 10^6/uL (4.40-6.38); RED CELL DISTRIBUTION WIDTH 12.1 % (11.5-15.2)
[2016-11-07 23:56] LABS: ANION GAP 13 mEq/L (8-16); CALCIUM 9.7 mg/dL (8.5-10.4); CARBON DIOXIDE 24 mEq/l (22-31); CHLORIDE 97 mEq/L (97-110); CREATININE 1.4 mg/dL (0.7-1.3); GLOMERULAR FILTRATION RATE 50; GLUCOSE 119 mg/dL (70-100); POTASSIUM 4.6 mEq/L (3.5-5.2); SODIUM 134 mEq/L (134-144)
[2016-11-08 00:07] LABS: TROPONIN I < 0.012 ng/mL (0.000-0.034)
[2016-11-08] MEDS ORDERED: NS 1,000 ML IV ONE (00:29)
[2016-11-08] MEDS ORDERED: IOPAMIDOL (ISOVUE 370) 100 ML BTL IV ONE (00:34)
[2016-11-08] MEDS ORDERED: PANTOPRAZOLE SODIUM 80 MG in NS 100 ML IV ONE (01:17)
--- NOTE | 2016-11-08 02:25 | EDPHY ---
H & P Stated Complaint: chest pain, post back surgery Time Seen by Provider: 11/07/16 23:36 HPI/ROS: Chief Complaint: Chest pain HPI: 76-year-old male who is 9 days status post lumbar spinal fusion and laminectomy started having upper chest pain only with deep breaths about 3 or 4 hours ago. Pain is about a 6/10. Has no pain at rest. Is not feeling short of breath. No cough. No nausea or vomiting. No abdominal pain. No fevers or chills. He he has no pain at rest. Only has pain when he takes a deep breath. He is substernal and sharp. No leg pain or swelling. ROS: 10 point Review of Systems is negative except as noted in the HPI. PMH: Chronic back pain and sciatica Social History: No smoking, no alcohol, no recreational drug use Family History: non-contributory Physical Exam: Gen: Awake, Alert, No Distress HEENT: Nose: no rhinorrhea Eyes: PERRLA, EOMI Mouth: Moist mucosa Neck: Supple, no JVD Chest: nontender, lungs clear to auscultation Heart: S1, S2 normal, no murmur Abd: Soft, non-tender, no guarding Back: no CVA tenderness, no midline tenderness Ext: no edema, non-tender Skin: no rash Neuro: CN II-XII intact, Sensation grossly intact, Strength 5/5 in bilateral upper and lower extremities - Medical/Surgical History Hx Asthma: No Hx Chronic Respiratory Disease: No Hx Diabetes: No Hx Cardiac Disease: No Hx Renal Disease: No Hx Cirrhosis: No Hx Alcoholism: No Hx HIV/AIDS: No Hx Splenectomy or Spleen Trauma: No Other PMH: IBS, diverticulosis, insomnia, GERD. bohers - Social History Smoking Status: Former smoker Constitutional: Initial Vital Signs Temperature (C) 37.5 C 11/07/16 23:14 Heart Rate 100 11/07/16 23:14 Respiratory Rate 20 11/07/16 23:14 Blood Pressure 107/85 H 11/07/16 23:14 O2 Sat (%) 88 L 11/07/16 23:14 O2 Delivery Mode Nasal Cannula O2 (L/minute) 2 Allergies/Adverse Reactions: No Known Allergies Allergy (Verified 11/07/16 23:11) Home Medications: Medication Instructions Recorded LORazepam [Ativan (*)] 2 mg PO HS 09/28/16 Omeprazole [Prilosec 20 mg] 40 mg PO DAILY 09/28/16 Zolpidem Tartrate [Ambien 10 mg] 10 mg PO HS 09/28/16 traZODone [traZODONE 100MG (*)] 200 mg PO HS 09/28/16 Acetaminophen [Tylenol ES 500 mg 1,000 mg PO Q8 tab 11/05/16 (*)] Diazepam [Valium 5 MG (*)] 5 mg PO Q4 PRN #90 tab 11/05/16 Gabapentin [Neurontin 300 MG (*)] 600 mg PO QID #120 cap 11/05/16 oxyCODONE CR [Oxycontin] 30 mg PO BID #60 tab 11/05/16 oxyCODONE IR [Oxycodone Ir (*)] 5 - 10 mg PO Q4HRS PRN #90 tab 11/05/16 tiZANidine HCL [Zanaflex] 4 mg PO Q8 PRN #60 tab 11/05/16 Medical Decision Making - Diagnostics EKG Interpretation: ECG time 11:08 p.m.. Sinus tachycardia with a rate of 101, normal axis, normal intervals, no acute ST or T-wave changes. Imaging Results: CT scan is negative for PE. There is a very small left effusion. There is some fluid in the esophagus. No infiltrates. Interpreted by Dr. Messer. ED Course/Re-evaluation: 76-year-old male with pleuritic chest pain for the last several hours. ECG is negative. Troponins negative. Does have an elevated D-dimer. He has risk factors for PE with recent surgery, tachycardia some hypoxemia. Will obtain CT scan investigate further. CT scan is negative for PE. Patient has had some improvement with Protonix. Cardiac workup is negative. Will discharge with follow-up with primary care physician. No evidence acute cardiopulmonary process at this time. - Data Points Laboratory Results: Laboratory Results 11/07/16 23:30 11/07/16 23:30 11/07/16 11/07/16 11/07/16 23:30 23:30 23:30 WBC 12.58 10^3/uL H 10^3/uL (3.80-9.50) RBC 3.86 10^6/uL L 10^6/uL (4.40-6.38) Hgb 12.8 g/dL L g/dL (13.7-17.5) Hct 37.7 % L % (40.0-51.0) MCV 97.7 fL fL (81.5-99.8) MCH 33.2 pg pg (27.9-34.1) MCHC 34.0 g/dL g/dL (32.4-36.7) RDW 12.1 % % (11.5-15.2) Plt Count 427 10^3/uL H 10^3/uL (150-400) MPV 9.6 fL fL (8.7-11.7) Neut % (Auto) 78.2 % H % (39.3-74.2) Lymph % (Auto) 9.0 % L % (15.0-45.0) Eagle % (Auto) 9.1 % % (4.5-13.0) Eos % (Auto) 2.3 % % (0.6-7.6) Baso % (Auto) 0.5 % % (0.3-1.7) Nucleat RBC Rel Count 0.0 % % (0.0-0.2) Absolute Neuts (auto) 9.84 10^3/uL H 10^3/uL (1.70-6.50) Absolute Lymphs (auto) 1.13 10^3/uL 10^3/uL (1.00-3.00) Absolute Monos (auto) 1.15 10^3/uL H 10^3/uL (0.30-0.80) Absolute Eos (auto) 0.29 10^3/uL 10^3/uL (0.03-0.40) Absolute Basos (auto) 0.06 10^3/uL 10^3/uL (0.02-0.10) Absolute Nucleated RBC 0.00 10^3/uL 10^3/uL (0-0.01) Immature Gran % 0.9 % % (0.0-1.1) Immature Gran # 0.11 10^3/uL H 10^3/uL (0.00-0.10) D-Dimer 3.55 ug/mLFEU H ug/mLFEU (0.00-0.50) Sodium 134 mEq/L mEq/L (134-144) Potassium 4.6 mEq/L mEq/L (3.5-5.2) Chloride 97 mEq/L mEq/L (97-110) Carbon Dioxide 24 mEq/l mEq/l (22-31) Anion Gap 13 mEq/L mEq/L (8-16) BUN 26 mg/dL H mg/dL (7-23) Creatinine 1.4 mg/dL H mg/dL (0.7-1.3) Estimated GFR 50 Glucose 119 mg/dL H mg/dL (70-100) Calcium 9.7 mg/dL mg/dL (8.5-10.4) Troponin I < 0.012 ng/mL ng/mL (0.000-0.034) Medications Given: Discontinued Medications Sodium Chloride (Ns) 1,000 mls @ 0 mls/hr IV ONCE ONE PRN Reason: Wide Open Stop: 11/08/16 00:30 Last Admin: 11/08/16 00:31 Dose: 1,000 mls Pantoprazole Sodium 80 mg/ (Sodium Chloride) 100 mls @ 200 mls/hr IV ONCE ONE Stop: 11/08/16 01:46 Last Admin: 11/08/16 01:36 Dose: 100 mls Departure - Departure Disposition: Home, Routine, Self-Care Clinical Impression: Chest pain Condition: Good Instructions: Pleurisy (ED), Gastroesophageal Reflux Disease (ED) Additional Instructions: Follow up with primary care physician in you neurosurgeon on Wednesday for further evaluation. Return to the emergency department for increasing chest pain, shortness of breath, fevers, chills, cough, new numbness, weakness, or any other concerns. Referrals: Aston Bishop MD [Primary Care Provider] - As per Instructions
[2016-11-08] MEDS ORDERED: ACETAMINOPHEN 500 MG TAB PO ONE (02:45)
[2016-11-08] MEDS ORDERED: ACETAMINOPHEN 325 MG TAB ONE (02:45)
[2016-11-08 02:55] VITALS: BP 110/79; PULSE 99; RESP 18; TEMP 100; O2SAT 96
== END 2016-11-08 02:55 | disposition home or self-care (01) ==
LOC: EDUNIT#
DX: R07.9 Chest pain, unspecified (principal); Z87.891 Personal history of nicotine dependence
CPT/HCPCS: 71275; 96361; 96365; 99285; Q9967

== ENCOUNTER 2016-12-04 19:12 | Inpatient (IN) | payer OTHER ==
[~2016-12-04 19:12] MED LIST changes: +IOPAMIDOL (ISOVUE 370) 100 ML BTL IV ONE; -NS 1,000 ML IV SCH
--- NOTE | 2016-12-04 20:29 | CPEKG ---
Heart Rate: 95 RR Interval: 632 P-R Interval: 156 QRSD Interval: 82 QT Interval: 332 QTC Interval: 418 P Frank[place]: 61 QRS [place]: 39 T Wave [place]: 15 EKG Severity - BORDERLINE ECG - EKG Impression: SINUS RHYTHM EKG Impression: PROBABLE LEFT ATRIAL ABNORMALITY Electronically Signed By: Marina Michelle 04-Dec-2016 21:12:26
--- NOTE | 2016-12-04 20:39 | EDPHY ---
H & P Time Seen by Provider: 12/04/16 20:10 HPI/ROS: CHIEF COMPLAINT: Increasing pericardial effusion HISTORY OF PRESENT ILLNESS: The patient is a 76 y/o male presenting to the ED after a repeat CT showed he had an increasing pericardial effusion. 6 weeks ago he had back surgery. On , 4 weeks ago, he began to have chest pain that would increase with inspiration. He then had a pulmonary angio CT , which showed no PE but there was a moderate pericardial effusion. He continues to have pleuritic chest pain and 1 week ago he began to have gradually increasing weakness and fatigue. 2 nights ago he fell down due to his weakness, but does not believe he lost consciousness. His notes he was disoriented after the fall and thinks he may have fainted. He also had a fever 2 nights ago. He has been mainly lying in bed. Today he was seen by Dr. Bishop and had a repeat CT, which showed an increasing pericardial effusion. He has also noticed that his heart rate has steadily increased in the past 3 days. He is still having moderate chest pain with inspiratio. Denies abdominal pain, bowel complaints, urinary complaints, cough or other pertinent symptoms. He was sent here by his PCP, Dr. Aston Bishop. REVIEW OF SYSTEMS: Aside from elements discussed in the HPI, a comprehensive 10-point review of systems was reviewed and is negative. Past Medical/Surgical History: PMH: IBS, diverticulosis, Boerhaave's syndrome, GERD PSH: Lumbar stenosis (6 weeks ago) Social History: at bedside, lives in [place], retired dentist Smoking Status: Former smoker Physical Exam: General Appearance: Alert, no distress Eyes: Pupils equal and round, no conjunctival pallor or injection ENT, Mouth: Mucous membranes moist Neck: Normal inspection Respiratory: Lungs are clear to auscultation Cardiovascular: Regular rate and rhythm, no murmur Gastrointestinal: Abdomen is soft and non-tender Back: Well-healing lumbar surgical scar Neurological: A&O, nonfocal exam Skin: Warm and dry, no rash Extremities: Nontender, no pedal edema Psychiatric: Mood and affect normal Constitutional: Initial Vital Signs Temperature (C) 37.5 C 12/04/16 19:22 Heart Rate 104 H 12/04/16 19:22 Respiratory Rate 16 12/04/16 19:22 Blood Pressure 122/75 H 12/04/16 19:22 O2 Sat (%) 93 12/04/16 19:22 O2 Delivery Mode Room Air Allergies/Adverse Reactions: No Known Allergies Allergy (Verified 11/07/16 23:11) Home Medications: Medication Instructions Recorded LORazepam [Ativan (*)] 2 mg PO HS 09/28/16 Omeprazole [Prilosec 20 mg] 40 mg PO DAILY 09/28/16 Zolpidem Tartrate [Ambien 10 mg] 10 mg PO HS 09/28/16 traZODone [traZODONE 100MG (*)] 200 mg PO HS 09/28/16 Acetaminophen [Tylenol ES 500 mg 1,000 mg PO Q8 tab 11/05/16 (*)] Gabapentin [Neurontin 300 MG (*)] 600 mg PO QID #120 cap 11/05/16 tiZANidine HCL [Zanaflex] 4 mg PO Q8 PRN #60 tab 11/05/16 morphINE SR [Ms Contin/Oramorph 15 15 mg PO DAILY 12/04/16 mg (*)] oxyCODONE IR [Oxycodone Ir (*)] 5 mg PO Q4HRS PRN 12/04/16 Medical Decision Making - Diagnostics EKG Interpretation: EKG interpreted by me reveals normal sinus rhythm, normal axis, normal intervals , ST and T segments normal. Interpretation: normal EKG Imaging Results: CT scan of the chest reviewed by me. Moderate pericardial effusion and mediastinal adenopathy ED Course/Re-evaluation: The patient is a 76 y/o male presents with symptomatic moderate pericardial effusion. Concerning given syncopal episode, increase in usual heart rate and increasing size of pericardial effusion. There is no evidence of pericardial tamponade or acute coronary syndrome. Possible viral etiology, given low-grade fevers. Blood cultures drawn. No history of malignancy or rheumatologic disorder. 2018: Consulted with Dr. Wilson, hospitalist, she accepts this patient for admission to PCU. Patient was stable throughout his emergency department stay. Reassessed patient and discussed plan for admission. Patient and his are comfortable with this plan. Differential Diagnosis: Differential diagnosis includes though it is not limited to pneumonia, pneumothorax, pulmonary embolism, aortic dissection, pericarditis, acute coronary syndrome. - Data Points Laboratory Results: Laboratory Results 12/05/16 12:30 12/05/16 03:41 12/05/16 12/05/16 12/05/16 12:30 12:30 12:30 Hct 31.6 % L % (40.0-51.0) ESR 53 MM/HR H MM/HR (0-20) Troponin I < 0.012 ng/mL ng/mL (0.000-0.034) Rheum Factor Semi-Quant < 8.6 IU/mL IU/mL (<12.0) DEB Screen Pending C. difficile Tox (PCR) HIV 1&2 Antibody Pending 12/05/16 12:00 Hct ESR Troponin I Rheum Factor Semi-Quant DEB Screen C. difficile Tox (PCR) NEGATIVE (NEGATIVE) HIV 1&2 Antibody Microbiology Results: MICROBIOLOGY 12/04/16 23:55 Nasal, Sinus - Swab Respiratory Panel (PCR) - Final No Organism Detected Medications Given: Acetaminophen (Tylenol) 650 mg PO Q4HRS PRN PRN Reason: Pain, Mild/Fever, Can Take PO Stop: 06/02/17 22:16 Last Admin: 12/05/16 08:35 Dose: 650 mg Acetaminophen (Tylenol) 1,000 mg PO Q8 JENNA Stop: 06/03/17 13:59 Last Admin: 12/05/16 15:46 Dose: 1,000 mg Gabapentin (Neurontin) 600 mg PO QID JENNA Stop: 06/03/17 11:59 Last Admin: 12/05/16 19:07 Dose: 600 mg Sodium Chloride (1/2 Ns) 1,000 mls @ 150 mls/hr IV CONT JENNA Stop: 12/06/16 18:24 Last Admin: 12/05/16 12:15 Dose: 1,000 mls Ondansetron HCl (Zofran) 4 mg IVP Q4HRS PRN PRN Reason: Nausea/Vomiting, Can't Take PO Stop: 06/02/17 22:16 Last Admin: 12/05/16 19:59 Dose: 4 mg Oxycodone HCl (Oxycodone Ir) 5 - 10 mg PO Q4HRS PRN PRN Reason: Pain, Severe Able to Take PO Stop: 12/15/16 02:32 Last Admin: 12/05/16 15:46 Dose: 5 mg Pantoprazole Sodium (Protonix) 40 mg PO DAILY JENNA Stop: 06/04/17 08:59 Last Admin: 12/05/16 12:14 Dose: 40 mg Discontinued Medications Lorazepam (Ativan) 1 mg PO HS PRN PRN Reason: Sleep/Insomnia Stop: 06/02/17 23:36 Last Admin: 12/04/16 23:54 Dose: 1 mg Trazodone HCl (Trazodone) 100 mg PO HS PRN PRN Reason: Sleep/Insomnia Stop: 06/02/17 23:36 Last Admin: 12/04/16 23:54 Dose: 100 mg Departure - Departure Disposition: [facility] Inpatient Acute Clinical Impression: Pericardial effusion Condition: Fair Report Scribed for: Marina Michelle Report Scribed by: Darlene Marquez Date of Report: 12/04/16 Time of Report: 20:30 Physician Review and Approval Statement: 12/04/16 20:30 Portions of this note were transcribed by a front office medical assistant. I personally performed a history, physical exam, medical decision making, and confirmed accuracy of information the transcribed note.
[2016-12-04 20:40] LABS: PLATELET COUNT 189 10^3/uL (150-400)
[2016-12-04 20:48] LABS: INR 1.09 (0.83-1.16)
[2016-12-04] MEDS ORDERED: ONDANSETRON DISINTEGRATING 4 MG TAB PO PRN (22:17)
[2016-12-04] MEDS ORDERED: ACETAMINOPHEN 325 MG TAB PO PRN (22:17)
[2016-12-04] MEDS ORDERED: LORazepam 1 MG TAB PO PRN (23:37)
[2016-12-04] MEDS ORDERED: traZODone 100 MG TAB PO PRN (23:37)
--- NOTE | 2016-12-05 01:53 | PDGENHP ---
History and Physical - Chief Complaint Fatigue - History of Present Illness 76 yo M w/ recent spinal surgery and insomnia presents with fatigue. Patient states the was recovering well from recent spinal fusion and laminectomy in October until he came to the ED on 11/08 with pleuritic chest pain. CTPE in the ED was negative at that time and he was sent home. He did fairly well after that until three days ago when he developed severe fatigue. He states he feels tired and weak and even has a hard time getting out of bed. He reports a single fever to 102 F as well on day prior to admission. He denies sore throat, rhinorrhea, cough, body aches, etc. He reports his surgical wounds are healing well. In the ED a CTPE was again performed, which was negative for PE but showed a moderate chucho-cardial effusion and he was therefore admitted. History Information - Allergies/Home Medication List Allergies/Adverse Reactions: No Known Allergies Allergy (Verified 11/07/16 23:11) Home Medications: LORazepam [Ativan (*)] 2 mg PO HS 09/28/16 [Last Taken 12/03/16] Omeprazole [Prilosec 20 mg] 40 mg PO DAILY 09/28/16 [Last Taken 12/04/16] Zolpidem Tartrate [Ambien 10 mg] 10 mg PO HS 09/28/16 [Last Taken 12/03/16] traZODone [traZODONE 100MG (*)] 200 mg PO HS 09/28/16 [Last Taken 10/28/16] morphINE SR [Ms Contin/Oramorph 15 mg (*)] 15 mg PO DAILY 12/04/16 [Last Taken 12/04/16] oxyCODONE IR [Oxycodone Ir (*)] 5 mg PO Q4HRS PRN 12/04/16 [Last Taken Unknown] I have personally reviewed and updated: family history, medical history - Past Medical History Additional medical history: Insomnia - Surgical History Reports: spinal surgery - Family History Positive for: cancer - Social History Smoking Status: Former smoker Review of Systems Review of Systems: ROS: 10pt was reviewed & negative except for what was stated in HPI & below Physical Exam Physical Exam: Temp Pulse Resp BP Pulse Ox 36.8 C 97 16 100/62 91 L 12/05/16 00:00 12/05/16 00:00 12/05/16 00:00 12/05/16 00:00 12/05/16 00:00 Constitutional: no apparent distress, appears nourished Eyes: PERRL, EOMI Ears, Nose, Mouth, Throat: moist mucous membranes, no oral mucosal ulcers Cardiovascular: regular rate and rhythym, no murmur, rub, or gallop Respiratory: no respiratory distress, no rales or rhonchi Gastrointestinal: normoactive bowel sounds, soft, non-tender abdomen Skin: warm, normal color Musculoskeletal: full muscle strength, no muscle tenderness Neurologic: AAOx3, CN II-XII Intact Psychiatric: interacting appropriately, not anxious Lab Data & Imaging Review 12/04/16 20:30 12/04/16 20:30 WBC 9.03 10^3/uL (3.80-9.50) 12/04/16 20:30 RBC 3.25 10^6/uL (4.40-6.38) L 12/04/16 20:30 Hgb 10.6 g/dL (13.7-17.5) L 12/04/16 20:30 Hct 31.9 % (40.0-51.0) L 12/04/16 20:30 MCV 98.2 fL (81.5-99.8) 12/04/16 20:30 MCH 32.6 pg (27.9-34.1) 12/04/16 20:30 MCHC 33.2 g/dL (32.4-36.7) 12/04/16 20:30 RDW 12.8 % (11.5-15.2) 12/04/16 20:30 Plt Count 189 10^3/uL (150-400) 12/04/16 20:30 MPV 10.7 fL (8.7-11.7) 12/04/16 20:30 Neut % (Auto) 80.1 % (39.3-74.2) H 12/04/16 20:30 Lymph % (Auto) 9.9 % (15.0-45.0) L 12/04/16 20:30 [place] % (Auto) 7.6 % (4.5-13.0) 12/04/16 20:30 Eos % (Auto) 1.7 % (0.6-7.6) 12/04/16 20:30 Baso % (Auto) 0.4 % (0.3-1.7) 12/04/16 20:30 Nucleat RBC Rel Count 0.0 % (0.0-0.2) 12/04/16 20:30 Absolute Neuts (auto) 7.23 10^3/uL (1.70-6.50) H 12/04/16 20:30 Absolute Lymphs (auto) 0.89 10^3/uL (1.00-3.00) L 12/04/16 20:30 Absolute Monos (auto) 0.69 10^3/uL (0.30-0.80) 12/04/16 20:30 Absolute Eos (auto) 0.15 10^3/uL (0.03-0.40) 12/04/16 20:30 Absolute Basos (auto) 0.04 10^3/uL (0.02-0.10) 12/04/16 20:30 Absolute Nucleated RBC 0.00 10^3/uL (0-0.01) 12/04/16 20:30 Immature Gran % 0.3 % (0.0-1.1) 12/04/16 20:30 Immature Gran # 0.03 10^3/uL (0.00-0.10) 12/04/16 20:30 PT 14.0 SEC (12.0-15.0) 12/04/16 20:30 INR 1.09 (0.83-1.16) 12/04/16 20:30 APTT 33.2 SEC (23.0-38.0) 12/04/16 20:30 Sodium 135 mEq/L (134-144) 12/04/16 20:30 Potassium 4.2 mEq/L (3.5-5.2) 12/04/16 20:30 Chloride 100 mEq/L (97-110) 12/04/16 20:30 Carbon Dioxide 23 mEq/l (22-31) 12/04/16 20:30 Anion Gap 12 mEq/L (8-16) 12/04/16 20:30 BUN 16 mg/dL (7-23) 12/04/16 20:30 Creatinine 1.2 mg/dL (0.7-1.3) 12/04/16 20:30 Estimated GFR 59 12/04/16 20:30 Glucose 108 mg/dL (70-100) H 12/04/16 20:30 Calcium 8.4 mg/dL (8.5-10.4) L 12/04/16 20:30 NT-Pro-B Natriuret Pep 1330 pg/mL (0-125) H 12/04/16 20:30 Imaging Review: CTPE with no PE but notable for moderate chucho-cardial effusion and small pleural effusions. Visualized and Interpreted EKG results: Yes EKG Interpretation: Positive for: normal sinsus rhythm, other (Bifid p-wave in lead II) Assessment & Plan Assessment: 76 yo M w/ spinal fusion and laminectomy in October presents with 3 days of fatigue and a pericardial effusion seen on CT. Plan: 1. Fatigue - Unclear if this is related to pericardial effusion seen on CT. Patient describes fairly non-specific fatigue with ROS only notable for a single fever on the day prior to admission. VS stable here and lab work-up only notable for anemia, which has progressed from prior and might be contributing. Viral infection is another consideration noting fever and chucho-cardial effusion. - Blood cultures, respiratory PCR, supportive care 2. Moderate pericardial effusion - Not described on report on 11/08 CTPE and described as moderate on today's exam. Hemodynamically stable with no signs of tamponade currently. Etiology unclear, could be viral or idiopathic; unclear if this could be related to October spinal surgery. No hx of malignancy or renal disease. - TTE for further evaluation - Respiratory PCR and TSH for limited, additional work-up - Cardiology consult 3. Anemia - Perhaps contributing to fatigue, although doubt onset would be so acute. Progressive from prior values. - B12, Iron panel, TSH 4. Recent spinal fusion, laminectomy - Recovering well, walking several miles per day prior to fatigue. 5. Insomnia - Patient takes Ambien 10 mg qHS, lorazepam 2 mg qHS, and trazodone 200 mg qHS for this. We discussed at length the dangers of such a combination with patient becoming somewhat upset. I discussed with him that I do not believe this is a safe combination but agreed to give him trazodone 100 mg and lorazepam 1 mg tonight. Diet - Regular Code - Full Ppx - SCDs Dispo - Admit to observation status
[2016-12-05] MEDS: oxyCODONE IR 5 MG TAB PO PRN ×5 (02:45→15:46)
[2016-12-05 04:39] LABS: PLATELET COUNT 188 10^3/uL (150-400)
--- NOTE | 2016-12-05 10:33 | ECHO ---
[email or web address] [address] [address] Main: [phone] Fax: Transthoracic Echocardiogram Name: RINA DAVIS MR#: [id number] Study Date: 12/05/2016 Study Time: 08:47 AM Date of : 1940 Age: 76 year(s) Height: 180.3 cm (71 in.) Weight: 77.11 kg (170 lb.) BSA: 1.97 m2 Gender: Male Examination: Echo Indication: Image Quality: Contrast: Requested by: Uri Payne BP: 101 mmHg/74 mmHg Heart Rate: Rhythm: Indication: Procedure Staff Fire Alarm Mechanic: Carole Campbell Reading Physician: Scooby Toney Requesting Provider: Conclusions: 1)Normal LV size and systolic function with a LVEF of 63% and normal wall motions. 2)Mild left atrial enlargement noted. 3)Trivial MR without MV prolapse. 4)Trivial TR noted. 5)Mild pericardial effusion noted more chronic appearing with fibrin material noted. No tamponade signs noted. Measurements: Chambers Valvular Assessment AV/MV Valvular Assessment TV/PV Normal Normal Normal Name Value Range Name Value Range Name Value Range Ao Emilee (MM): 4.2 cm (2.2 cm-3.7 AV meanP mmHg ( - ) cm) MV E Vmax: 0.74 m/s ( - ) IVSd (2D): 1.0 cm (0.6 cm-1.1 MV A Vmax: 0.57 m/s ( - ) cm) MV E/A: 1.30 ( - ) LVDd (2D): 5.0 cm (4.2 cm-5.9 cm) LVDs (2D): 3.3 cm (2.1 cm-4 cm) LVPWd (2D): 1.0 cm (0.6 cm-1 cm) LVEF (MOD4): 63 % (>=55 %) EF Range: 70-75 % Continued Measurements: Chambers Valvular Assessment AV/MV Name Value Name Value LADs: 4.2 cm MV E/E' Septal: 7.40 LADs Lon.3 cm MV E/E' Lateral: 6.20 Patient: RINA DAVIS Study Date: 12/05/2016 Page 1 of 2 08:47 AM LA Area: 16.2 cm2 Findings: Left Ventricle: Normal size left ventricle. No LV hypertrophy. Global hypercontractility of the left ventricle. The ejection fraction is estimated to be 70-75 %. No regional wall motion abnormality. Right Ventricle: Normal size right ventricle. Left Atrium: The left atrium is mildly dilated. Right Atrium: The right atrium is normal in size. Mitral Valve: The mitral valve is normal in appearance and function. Trivial mitral valve regurgitation. Aortic Valve: The aortic valve is normal in appearance and function. Tricuspid Valve: The tricuspid valve is normal in appearance and function. Trivial tricuspid valve regurgitation. Pulmonic Valve: The pulmonic valve is normal in appearance and function. Aorta: The aorta is normal. Pericardium: Mild pericardial effusion with chronic appearing fibrin noted. No tamponade signs.. (No Signature Object) Patient: RINA DAVIS Study Date: 12/05/2016 Page 2 of 2 08:47 AM [id number]
--- NOTE | 2016-12-05 10:33 | ECHO ---
[email or web address] [address] [address] Main: [phone] Fax: Transthoracic Echocardiogram Name: RINA DAVIS MR#: [id number] Study Date: 12/05/2016 Study Time: 08:47 AM Date of : 1940 Age: 76 year(s) Height: 180.3 cm (71 in.) Weight: 77.11 kg (170 lb.) BSA: 1.97 m2 Gender: Male Examination: Echo Indication: Image Quality: Contrast: Requested by: Uri Payne BP: 101 mmHg/74 mmHg Heart Rate: Rhythm: Indication: Procedure Staff Sales Operations Analyst: Carole Campbell Reading Physician: Scooby Toney Requesting Provider: Conclusions: 1)Normal LV size and systolic function with a LVEF of 63% and normal wall motions. 2)Mild left atrial enlargement noted. 3)Trivial MR without MV prolapse. 4)Trivial TR noted. 5)Mild pericardial effusion noted more chronic appearing with fibrin material noted. No tamponade signs noted. Measurements: Chambers Valvular Assessment AV/MV Valvular Assessment TV/PV Normal Normal Normal Name Value Range Name Value Range Name Value Range Ao Emilee (MM): 4.2 cm (2.2 cm-3.7 AV meanP mmHg ( - ) cm) MV E Vmax: 0.74 m/s ( - ) IVSd (2D): 1.0 cm (0.6 cm-1.1 MV A Vmax: 0.57 m/s ( - ) cm) MV E/A: 1.30 ( - ) LVDd (2D): 5.0 cm (4.2 cm-5.9 cm) LVDs (2D): 3.3 cm (2.1 cm-4 cm) LVPWd (2D): 1.0 cm (0.6 cm-1 cm) LVEF (MOD4): 63 % (>=55 %) EF Range: 70-75 % Continued Measurements: Chambers Valvular Assessment AV/MV Name Value Name Value LADs: 4.2 cm MV E/E' Septal: 7.40 LADs Lon.3 cm MV E/E' Lateral: 6.20 Patient: RINA DAVIS Study Date: 12/05/2016 Page 1 of 2 08:47 AM LA Area: 16.2 cm2 Findings: Left Ventricle: Normal size left ventricle. No LV hypertrophy. Global hypercontractility of the left ventricle. The ejection fraction is estimated to be 70-75 %. No regional wall motion abnormality. Right Ventricle: Normal size right ventricle. Left Atrium: The left atrium is mildly dilated. Right Atrium: The right atrium is normal in size. Mitral Valve: The mitral valve is normal in appearance and function. Trivial mitral valve regurgitation. Aortic Valve: The aortic valve is normal in appearance and function. Tricuspid Valve: The tricuspid valve is normal in appearance and function. Trivial tricuspid valve regurgitation. Pulmonic Valve: The pulmonic valve is normal in appearance and function. Aorta: The aorta is normal. Pericardium: Mild pericardial effusion with chronic appearing fibrin noted. No tamponade signs.. (No Signature Object) Patient: RINA DAVIS Study Date: 12/05/2016 Page 2 of 2 08:47 AM [id number]
--- NOTE | 2016-12-05 10:33 | ECHO ---
[email or web address] [address] [address] Main: [phone] Fax: Transthoracic Echocardiogram Name: RINA DAVIS MR#: [id number] Study Date: 12/05/2016 Study Time: 08:47 AM Date of : 1940 Age: 76 year(s) Height: 180.3 cm (71 in.) Weight: 77.11 kg (170 lb.) BSA: 1.97 m2 Gender: Male Examination: Echo Indication: Image Quality: Contrast: Requested by: Uri Payne BP: 101 mmHg/74 mmHg Heart Rate: Rhythm: Indication: Procedure Staff Stevedore Hold: Carole Campbell Reading Physician: Scooby Toney Requesting Provider: Conclusions: 1)Normal LV size and systolic function with a LVEF of 63% and normal wall motions. 2)Mild left atrial enlargement noted. 3)Trivial MR without MV prolapse. 4)Trivial TR noted. 5)Mild pericardial effusion noted more chronic appearing with fibrin material noted. No tamponade signs noted. Measurements: Chambers Valvular Assessment AV/MV Valvular Assessment TV/PV Normal Normal Normal Name Value Range Name Value Range Name Value Range Ao Emilee (MM): 4.2 cm (2.2 cm-3.7 AV meanP mmHg ( - ) cm) MV E Vmax: 0.74 m/s ( - ) IVSd (2D): 1.0 cm (0.6 cm-1.1 MV A Vmax: 0.57 m/s ( - ) cm) MV E/A: 1.30 ( - ) LVDd (2D): 5.0 cm (4.2 cm-5.9 cm) LVDs (2D): 3.3 cm (2.1 cm-4 cm) LVPWd (2D): 1.0 cm (0.6 cm-1 cm) LVEF (MOD4): 63 % (>=55 %) EF Range: 70-75 % Continued Measurements: Chambers Valvular Assessment AV/MV Name Value Name Value LADs: 4.2 cm MV E/E' Septal: 7.40 LADs Lon.3 cm MV E/E' Lateral: 6.20 Patient: RINA DAVIS Study Date: 12/05/2016 Page 1 of 2 08:47 AM LA Area: 16.2 cm2 Findings: Left Ventricle: Normal size left ventricle. No LV hypertrophy. Global hypercontractility of the left ventricle. The ejection fraction is estimated to be 70-75 %. No regional wall motion abnormality. Right Ventricle: Normal size right ventricle. Left Atrium: The left atrium is mildly dilated. Right Atrium: The right atrium is normal in size. Mitral Valve: The mitral valve is normal in appearance and function. Trivial mitral valve regurgitation. Aortic Valve: The aortic valve is normal in appearance and function. Tricuspid Valve: The tricuspid valve is normal in appearance and function. Trivial tricuspid valve regurgitation. Pulmonic Valve: The pulmonic valve is normal in appearance and function. Aorta: The aorta is normal. Pericardium: Mild pericardial effusion with chronic appearing fibrin noted. No tamponade signs.. (No Signature Object) Patient: RINA DAVIS Study Date: 12/05/2016 Page 2 of 2 08:47 AM [id number]
--- NOTE | 2016-12-05 11:29 | SOAPPROG ---
[facility] Progress Note Assessment/Plan: Assessment: See full dictated cardiology consult for full thoughts. 76 y/o man with lumbar laminectomy five weeks ago then pleuritic CP four weeks. CT chest at that time no PE or pericardial effusion. Last two days with fevers to 101.0F, near syncope and pleuritic CP. CT chest last night with no PE but suggested moderate pericardial effusion. Echo today normal LVEF with mild valvular abnormalities and mild-moderate more chronic appearing pericardial effusion with fibrinous material and no tamponade. Clinically appears intravascularly dry. Also has new anemia. I do not think he is having thoracic aortic rupture with pericardial effusion and no upper back pain at all. I wonder if he has a more chronic process and need to evaluate for malignancy, HIV and autoimmune processes like SLE or RA. REC: 1)keep in hospital another 24hrs. 2)IVF NS 150cc/hr x two liters 3)labs now (DEB, RF, cardiac troponin and ESR). 4)labs in AM (CBC and CMP) 5)ecg 6)will follow with you. 7)No colchicine yet as having lots of diarrhea today. No NSAIDs until sure new anemia is not GI bleed. Thanks. 12/05/16 11:24 Objective: Vital Signs Temp Pulse Resp BP Pulse Ox 37.0 C 91 13 101/74 94 12/05/16 07:17 12/05/16 07:17 12/05/16 07:17 12/05/16 07:17 12/05/16 07:17 Microbiology 12/04/16 23:55 Respiratory Panel (PCR) - Final Nasal, Sinus - Swab No Organism Detected Laboratory Results 12/05/16 03:41 12/05/16 03:41 12/04/16 12/05/16 12/06/16 05:59 05:59 05:59 Intake Total 650 500 Output Total 600 600 Balance 50 -100 PT 14.0 SEC (12.0-15.0) 12/04/16 20:30 INR 1.09 (0.83-1.16) 12/04/16 20:30 ICD10 Worksheet Patient Problems: Problems Problem Status Onset Pericardial effusion Acute Lumbar stenosis Acute
[2016-12-05] MEDS ORDERED: 1/2 NS 1,000 ML IV SCH (11:45)
[2016-12-05] MEDS ORDERED: PANTOPRAZOLE SODIUM 40 MG TAB PO ONE (12:03)
--- NOTE | 2016-12-05 12:12 | GCON ---
[f rep st] CONSULTATION CARDIOLOGY CONSULTATION DATE OF CONSULTATION: 12/05/2016 REASON FOR CONSULTATION: Evaluate gentleman with pleuritic chest pain, low-grade fevers, and near-sy ncope with [id number] chronic pericardial effusion. HISTORY OF PRESENT ILLNESS: I was asked by Dr. Julio Cesar Tobin to consult for the above reasons. 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 About 6 weeks ago, he had an extensive lumbar s urgery. He went home, and several days later, had pleuritic chest pain and came back to the emergenc y room. At that time, a CAT scan demonstrated no evidence of pericardial effusion or pulmonary embol us. He went home and was doing well until about 3 days ago, when he started having pleuritic chest p ain again. He felt febrile and took a temperature of a 101.5. He had several episodes of near-synco pe. He re-presented to the emergency room, and a repeat CAT scan demonstrated no PE, but now showed a moderate pericardial effusion. An echo this morning demonstrates normal LV function with more of a chronic-appearing pericardial effusion with fibrinous material, but no evidence of tamponade. This morning, he is tired and weak, but reports no shortness of breath. He is still having some pleuritic chest pain. He says he has lost about 8 pounds over the last year. He is having lots of nonbloody diarrhea. He has never been told he had cancer or autoimmune problems. PAST MEDICAL HISTORY: Boerhaave syndrome, diverticulosis, chronic insomnia. PAST SURGICAL HISTORY: Remote appendectomy and a lumbar laminectomy in October 2016. CURRENT MEDICATIONS: Ativan and trazodone. ALLERGIES: None. SOCIAL HISTORY: Patient is . He is a retired dentist. He quit tobacco use in 1974 and has 2 glasses of wine per day. FAMILY HISTORY: Unremarkable for premature coronary artery disease. REVIEW OF SYSTEMS: The patient reports no hemoptysis or purulent sputum production. He has no TIA o r CVA symptoms. He has no joint swelling. Rest of 10-point review of systems is negative. PHYSICAL EXAMINATION: VITAL SIGNS: Pulse 91 and regular, blood pressure 101/74, respirations 20, 94 % on room air. GENERAL: A thin-appearing man in no acute distress without chest pain or use of acce ssory respiratory muscles. EYES: Pupils equal and reactive to light. ENT: Oral mucosa with no cya nosis. NECK: Jugular venous pressure to 6 to 7 cm. Carotid pulses 2+ bilaterally with no obvious b ruits. LUNGS: Clear to auscultation bilaterally without rales, rhonchi, or wheezing. HEART: Jesica l PMI. Regular rate and rhythm with no obvious murmurs or S3. ABDOMEN: Soft and nontender. No gua rding or rebound. EXTREMITIES: Peripheral pulses 2+, including femoral and pedal pulses. No edema noted. MUSCULOSKELETAL: No scoliosis or nuchal rigidity. SKIN: No bleeding or cyanosis. NEUROLOG IC: Alert and oriented x3. EKG: Normal sinus rhythm with nonspecific ST depression less than 1 mm. LABORATORY: Hematocrit 31, platelets 188,000, MCV 97. INR 1.09. Sodium 141, potassium 4.1, chlorid e 106, bicarb 23, BUN 13, creatinine 1.1, glucose 96. NT-proBNP 1330. TSH 2.3. IMPRESSION: A 76-year-old man with 3 days of pleuritic chest pain, low-grade fevers, and near-syncop e with AN echo suggesting more of a chronic pericardial process. He could have had a viral pericardi tis weeks to months ago, but also consideration must be done for malignancies versus autoimmune proce sses such as lupus or rheumatoid arthritis or human immunodeficiency virus. He appears clinically in travascularly dry. Clinically, I am not suspicious of an acute thoracic aortic dissection with a new pericardial effusion, as he has no upper back pain and is hemodynamically stable. RECOMMENDATIONS: 1. Would give IV fluid, normal saline 150 cc/hour x2 L today. 2. Would check labs now currently, including an DEB, rheumatoid factor, sedimentation rate, troponin , and HIV. 3. After 2 L of fluid tomorrow, would recheck a CBC to see if his hematocrit is lower and a CMP. 4. We will continue to follow with you during this hospitalization. 5. Would not empirically put him on colchicine with all the diarrhea he is having and would not do n onsteroidals until we know he is not having a GI bleed. /[id number]/MODL
[2016-12-05] MEDS: PANTOPRAZOLE SODIUM 40 MG TAB PO SCH (12:14)
[2016-12-05] MEDS: GABAPENTIN 300 MG CAP PO SCH ×3 (12:14→21:00)
--- NOTE | 2016-12-05 12:29 | HOSPPROG ---
Hospitalist Progress Note Assessment/Plan: Assessment: 76 yo M new to my care 12/04 w/ spinal fusion and laminectomy in October presents with 3 days of fatigue and a pericardial effusion seen on CT. 1. Fatigue - Unclear if this is related to pericardial effusion seen on CT - Blood cultures, respiratory PCR, supportive care 2. Moderate pericardial effusion without evidence of tamponade. Unclear etiology -agree with auto immune workup -screen for underlying malignancy #. Anemia of chronic disease -plan as per above 4. Recent spinal fusion, laminectomy - Recovering well, walking several miles per day prior to fatigue. 5. Insomnia -will continue pts home regime per pt request #diarrhea -send stool for c-diff Diet - Regular Code - Full Ppx - SCDs Dispo -change to inpatient status. requires further hospitalization for testing and monitor for improvement Subjective: still with some lethargy. no shortness of breath. >10 stools today. denies h/o diarrhea. does have constipation attributed to narcotic pain meds Objective: Vital Signs Temp Pulse Resp BP Pulse Ox 36.7 C 80 17 109/74 93 12/05/16 11:53 12/05/16 11:53 12/05/16 11:53 12/05/16 11:53 12/05/16 11:53 Microbiology 12/04/16 23:55 Respiratory Panel (PCR) - Final Nasal, Sinus - Swab No Organism Detected Laboratory Results 12/05/16 03:41 12/05/16 03:41 12/04/16 12/05/16 12/06/16 05:59 05:59 05:59 Intake Total 650 500 Output Total 600 600 Balance 50 -100 PT 14.0 SEC (12.0-15.0) 12/04/16 20:30 INR 1.09 (0.83-1.16) 12/04/16 20:30 - Physical Exam Cardiovascular: regular rate and rhythym, no murmur, rub, or gallop, other (no jvd heart sounds not diminished) Respiratory: no respiratory distress, no rales or rhonchi, clear to auscultation Gastrointestinal: normoactive bowel sounds, soft, non-tender abdomen, no palpable masses, No guarding, No rebound Skin: no rashes or abrasions, no fluctuance, no induration Neurologic: AAOx3, sensation intact bilaterally ICD10 Worksheet Patient Problems: Problems Problem Status Onset Lumbar stenosis Acute Pericardial effusion Acute
[2016-12-05] MEDS ORDERED: LORazepam 1 MG TAB PO PRN (14:00)
[2016-12-05] MEDS ORDERED: traZODone 100 MG TAB PO PRN (14:00)
--- NOTE | 2016-12-05 14:00 | PDMN ---
Medical Necessity Medical necessity: C/M review: est. > 2 MN LOS for eval and TX of acute and persistent moderate pericardial effusion on CT of unclear etiology, fatigue, diarrhea requiring IV fluids, ongoing cardiac monitoring, comorbid 10/2016 hospitalization lumbar spinal fusion and laminectomy, insomnia per 12/05/2016 Hospitalist progress note.
--- NOTE | 2016-12-05 15:31 | ASMTCMCOM ---
CM Note CM Note Notes: Pt. is a 76-year-old man admitted with fatigue and a pericardial effusion. Pt. having a lot of stools today. Sent for C-diff testing. doing some testing to see if Pt. may have autoimmune issue or malignancy. 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 has been tearful about his potential diagnoses. Should Pt. still be admitted on Wednesday, please page Bioinformatics Associate or have SWer see Pt. RN thinks Pt. will be independent at d/c. Date Signed: 12/05/2016 03:30 PM Electronically Signed By:Vandana Dominique LCSW
[2016-12-05] MEDS: ONDANSETRON 4 MG/2 ML VIAL IVP PRN ×2 (15:46→19:59)
[2016-12-05] MEDS: ACETAMINOPHEN 500 MG TAB PO SCH ×2 (15:46→21:00)
[2016-12-05] MEDS ORDERED: NON-FORMULARY NEW DRUG (Zolpidem Tartrate [Ambien 10 Mg] 10 MG) PO SCH (21:00)
[2016-12-05] MEDS ORDERED: ZOLPIDEM TARTRATE 5 MG TAB PO SCH (21:00)
[2016-12-06] MEDS: GABAPENTIN 300 MG CAP PO SCH ×2 (05:44→11:59)
[2016-12-06] MEDS: ACETAMINOPHEN 500 MG TAB PO SCH (05:45)
--- NOTE | 2016-12-06 07:26 | SOAPPROG ---
SOAP Progress Note Assessment/Plan: Assessment: 76 y/o man with lumbar laminectomy five weeks ago then pleuritic CP four weeks. CT chest at that time no PE or pericardial effusion. Last two days with fevers to 101.0F, near syncope and pleuritic CP. CT chest last night with no PE but suggested moderate pericardial effusion. Echo shows normal LVEF with mild valvular abnormalities and mild-moderate more chronic appearing pericardial effusion with fibrinous material and no tamponade. Clinically appears intravascularly dry. Also has new anemia. I do not think he is having thoracic aortic rupture with pericardial effusion and no upper back pain at all. I wonder if he has a more chronic process and need to evaluate for malignancy, HIV and autoimmune processes like SLE or RA. REC: 1)start Colchicine 0.6mg PO qam watching for major diarrhea. 2)okay to discharge home from cardiac standpoint today after second liter of IVF done and ambulates hallway without issues 3)labs (CBC, CMP and BNP level) and repeat limited echo to reevaluate pericardial effusion in four weeks and f/u [facility] with ecg in five weeks. 4)f/u PCP in 1-2 wks. Thanks. 12/06/16 07:23 Subjective: overall he feels better. More energy. No CALL, PND, syncope or palpitations. Pleuritic CP is almost gone. No fevers or chills. Objective: Vital Signs Temp Pulse Resp BP Pulse Ox 37.0 C 99 16 121/77 H 99 12/06/16 04:00 12/06/16 04:00 12/06/16 04:00 12/06/16 04:00 12/06/16 04:00 Laboratory Results 12/06/16 04:25 12/06/16 04:25 12/05/16 12/06/16 12/07/16 05:59 05:59 05:59 Intake Total 800 300 Balance 800 300 PT 14.0 SEC (12.0-15.0) 12/04/16 20:30 INR 1.09 (0.83-1.16) 12/04/16 20:30 Physical Exam - Physical Exam General Appearance: alert EENT: normal ENT inspection Neck: full range of motion Respiratory: lungs clear Cardiac/Chest: regular rate, rhythm, systolic murmur, No gallop, No JVD (1/6 TIFFANI heard) Peripheral Pulses: 2+: carotid (R), carotid (L), femoral (R), femoral (L), dorsalis-pedis (R), dorsalis-pedis (L) Abdomen: non-tender, No organomegaly, No rebound Skin: warm/dry Extremities: No pedal edema Neuro/Psych: oriented x 3 ICD10 Worksheet Patient Problems: Problems Problem Status Onset Pericardial effusion Acute Lumbar stenosis Acute
[2016-12-06 07:34] VITALS: BP 105/76; PULSE 79; RESP 13; TEMP 98; O2SAT 95
[2016-12-06] MEDS ORDERED: COLCHICINE 0.6 MG CAP/TAB PO SCH (09:00)
[2016-12-06] MEDS ORDERED: morphINE SR 15 MG TAB PO SCH (09:00)
[2016-12-06] MEDS ORDERED: NON-FORMULARY NEW DRUG (Omeprazole [Prilosec 20 Mg] 40 MG) PO SCH (09:00)
[2016-12-06] MEDS: PANTOPRAZOLE SODIUM 40 MG TAB PO SCH (10:07)
--- NOTE | 2016-12-06 10:40 | GDS ---
[f rep st] DISCHARGE SUMMARY DISCHARGE DIAGNOSES: 1. Fatigue of unclear etiology. 2. Moderate pericardial effusion without evidence for tamponade of unclear etiology. 3. Anemia of chronic disease. 4. Recent spinal fusion. 5. Insomnia. 6. Opioid induced constipation with episodes of diarrhea, Clostridium difficile negative. CONSULTANTS: Dr. Familia Toney, cardiology. HOSPITAL COURSE BY PROBLEM: Fatigue: The patient presented to the hospital on 12/05/2016 with fatig ue. BNP was done that was elevated at 1330. A CT angio of the chest was done, which showed a new mo derate size pericardial effusion of unclear etiology. There were no PEs. The patient was monitored on telemetry where he has had no arrhythmias. An echocardiogram done on confirmed this moderate-size pericardial effusion that had some chronic appearing fibrin wit hout signs of tamponade. His ejection fraction was estimated to be 70 75%. While in the hospital he has received IV hydration. On day of discharge, he tells me he is feeling s omewhat better, also to note his hemoglobin on initial presentation was 10.6 with a high normal MCV. Iron studies were done which were consistent with anemia of chronic disease with a low TIBC of 225, as well as low iron, iron saturation, but a normal ferritin. The patient denies any weight loss. He tells me he had a colonoscopy 7 years ago. Preliminary autoimmune workup was done. DEB was sent which is currently pending. Rheumatoid factor was done that was less than 8.6. HIV is currently pending. C difficile was done that was negative. His ESR was mildly elevated at 53. PHYSICAL EXAMINATION: VITAL SIGNS: On day of discharge, blood pressure 105/76, pulse 79, respirator y rate 13, O2 saturation 95% on 2 L. Temperature afebrile. GENERAL: No acute distress. HEART: So unds are not distant. There is no JVD. S1, S2. ABDOMEN: Soft. EXTREMITIES: No edema. PERTINENT LABORATORIES AND STUDIES DONE THIS HOSPITAL STAY: CT angio of the chest done 12/04/2016, soina durand to report. Echocardiogram done 12/04/2016, refer to report. DISCHARGE MEDICATIONS: Please refer to discharge medication reconciliation in [facility] for full deta ils. Below is a preliminary list. New medications on hospital discharge colchicine 0.6 mg p.o. daily was recommended by Cardiology. DISCHARGE INSTRUCTIONS: The patient will be discharged from the hospital where he should follow up w ith his primary care provider in the next week or 2 for further workup of his anemia of chronic disea se. It may be reasonable to have him to be referred to a table worker packager if the reason for this anemia is not readily apparent. He needs followup of his DEB and HIV panel. He should follow up with Dr. Herminio quinonez in 4 weeks, at which time he should have a repeat echo, CBC, CMP, ESR, and BNP. The patient was instructed to seek medical attention if his condition worsens with worsening fatigue, shortness of b reath, dizziness, or syncope. /[id number]/MODL
[2016-12-06] MEDS: oxyCODONE IR 5 MG TAB PO PRN (10:54)
--- NOTE | 2016-12-06 11:48 | ASMTCMCOM ---
CM Note CM Note Notes: Patient has been discharged home w/. No discharge needs noted. Date Signed: 12/06/2016 11:47 AM Electronically Signed By:Saima Beltran LCSW
--- NOTE | 2016-12-06 11:48 | ASMTCMCOM ---
CM Note CM Note Notes: Patient has been discharged home w/. No discharge needs noted. Date Signed: 12/06/2016 11:47 AM Electronically Signed By:Saima Beltran LCSW
--- NOTE | 2016-12-06 11:48 | ASMTCMCOM ---
CM Note CM Note Notes: Patient has been discharged home w/. No discharge needs noted. Date Signed: 12/06/2016 11:47 AM Electronically Signed By:Saima Beltran LCSW
--- NOTE | 2016-12-06 14:29 | ASDISCHSUM ---
Discharge Information Plan Status:Home with No Needs Medically Cleared to Leave:12/06/2016 Discharge Date:12/06/2016 12:23 PM CM D/C Disposition:Home, Routine, Self-Care ADT D/C Disposition:Home, Routine, Self-Care Projected Discharge Date:12/06/2016 02:00 PM Transportation at D/C:Family Discharge Delay Reason: Follow-Up Date:12/06/2016 02:00 PM Discharge Slot:2 - 12:01 pm - 18:00 pm Final Diagnosis:Fatigue w/unclear etiology Placement Information Patient Contact Information Contact Name:CORY Relationship:Son Address:[address] City:[place] Alternate Phone: State/Zip Code:[place] [address] Email: Financial Information Financial Class: Primary Plan Desc:MEDICARE INPATIENT Primary Plan Number:[id number] Secondary Plan Desc: LIFE INSURANCE Secondary Plan Number:[id number] Assessment Information [facility] CM Progress Note CM Note CM Note Notes: Pt. is a 76-year-old man admitted with fatigue and a pericardial effusion. Pt. having a lot of stools today. Sent for C-diff testing. doing some testing to see if Pt. may have autoimmune issue or malignancy. 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 has been tearful about his potential diagnoses. Should Pt. still be admitted on Wednesday, please page or have SWer see Pt. RN thinks Pt. will be independent at d/c. Date Signed: 12/05/2016 03:30 PM Electronically Signed By:Vandana Dominique LCSW [facility] CM Progress Note CM Note CM Note Notes: Patient has been discharged home w/. No discharge needs noted. Date Signed: 12/06/2016 11:47 AM Electronically Signed By:Saima Beltran LCSW Intervention Information Intervention Type:*Occurence 72 Date of Service:12/04/2016 10:16 PM Patient Type:Inpatient Staff Member:MILLI Bar Rosalba Hours:0.25 Discipline: Severity:1 (0-1 Hours) Comment:[facility] 72 for 12/04/2016 22:16-12/05/2016 13:07 as patient discharged 12/06/2016 09:49 (< 2 [place] LOS after patient admission status changed from observation to inpatient) .
--- NOTE | 2016-12-06 14:29 | ASDISCHSUM ---
Discharge Information Plan Status:Home with No Needs Medically Cleared to Leave:12/06/2016 Discharge Date:12/06/2016 12:23 PM CM D/C Disposition:Home, Routine, Self-Care ADT D/C Disposition:Home, Routine, Self-Care Projected Discharge Date:12/06/2016 02:00 PM Transportation at D/C:Family Discharge Delay Reason: Follow-Up Date:12/06/2016 02:00 PM Discharge Slot:2 - 12:01 pm - 18:00 pm Final Diagnosis:Fatigue w/unclear etiology Placement Information Patient Contact Information Contact Name:CORY Relationship:Son Address:[address] City:[place] Alternate Phone: State/Zip Code:[place] [address] Email: Financial Information Financial Class: Primary Plan Desc:MEDICARE INPATIENT Primary Plan Number:[id number] Secondary Plan Desc: LIFE INSURANCE Secondary Plan Number:[id number] Assessment Information [facility] CM Progress Note CM Note CM Note Notes: Pt. is a 76-year-old man admitted with fatigue and a pericardial effusion. Pt. having a lot of stools today. Sent for C-diff testing. doing some testing to see if Pt. may have autoimmune issue or malignancy. 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 has been tearful about his potential diagnoses. Should Pt. still be admitted on Wednesday, please page or have SWer see Pt. RN thinks Pt. will be independent at d/c. Date Signed: 12/05/2016 03:30 PM Electronically Signed By:Vandana Dominique LCSW [facility] CM Progress Note CM Note CM Note Notes: Patient has been discharged home w/. No discharge needs noted. Date Signed: 12/06/2016 11:47 AM Electronically Signed By:Saima Beltran LCSW Intervention Information Intervention Type:*Occurence 72 Date of Service:12/04/2016 10:16 PM Patient Type:Inpatient Staff Member:MILLI Bar Rosalba Hours:0.25 Discipline: Severity:1 (0-1 Hours) Comment:[facility] 72 for 12/04/2016 22:16-12/05/2016 13:07 as patient discharged 12/06/2016 09:49 (< 2 [place] LOS after patient admission status changed from observation to inpatient) .
--- NOTE | 2016-12-06 14:29 | ASDISCHSUM ---
Discharge Information Plan Status:Home with No Needs Medically Cleared to Leave:12/06/2016 Discharge Date:12/06/2016 12:23 PM CM D/C Disposition:Home, Routine, Self-Care ADT D/C Disposition:Home, Routine, Self-Care Projected Discharge Date:12/06/2016 02:00 PM Transportation at D/C:Family Discharge Delay Reason: Follow-Up Date:12/06/2016 02:00 PM Discharge Slot:2 - 12:01 pm - 18:00 pm Final Diagnosis:Fatigue w/unclear etiology Placement Information Patient Contact Information Contact Name:CORY Relationship:Son Address:[address] City:[place] Alternate Phone: State/Zip Code:[place] [address] Email: Financial Information Financial Class: Primary Plan Desc:MEDICARE INPATIENT Primary Plan Number:[id number] Secondary Plan Desc: LIFE INSURANCE Secondary Plan Number:[id number] Assessment Information [facility] CM Progress Note CM Note CM Note Notes: Pt. is a 76-year-old man admitted with fatigue and a pericardial effusion. Pt. having a lot of stools today. Sent for C-diff testing. doing some testing to see if Pt. may have autoimmune issue or malignancy. 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 has been tearful about his potential diagnoses. Should Pt. still be admitted on Wednesday, please page or have SWer see Pt. RN thinks Pt. will be independent at d/c. Date Signed: 12/05/2016 03:30 PM Electronically Signed By:Vandana Dominique LCSW [facility] CM Progress Note CM Note CM Note Notes: Patient has been discharged home w/. No discharge needs noted. Date Signed: 12/06/2016 11:47 AM Electronically Signed By:Saima Beltran LCSW Intervention Information Intervention Type:*Occurence 72 Date of Service:12/04/2016 10:16 PM Patient Type:Inpatient Staff Member:MILLI Bar Rosalba Hours:0.25 Discipline: Severity:1 (0-1 Hours) Comment:[facility] 72 for 12/04/2016 22:16-12/05/2016 13:07 as patient discharged 12/06/2016 09:49 (< 2 [place] LOS after patient admission status changed from observation to inpatient) .
[2016-12-07 02:21] LABS: HIV TYPE 1 AND 2 NEGATIVE (NEGATIVE)
== END 2016-12-06 12:23 | disposition home or self-care (01) | DRG 316 ==
LOC: INTOOBSV 20:27 → F2W 21:48 → OBSVTOIN 12-05 13:07
PROVIDERS: ADMIT Internal Medicine; ATTEND Internal Medicine
CPT/HCPCS: 82607-90; G0378; J2405; Q9967

== ENCOUNTER → 2016-12-11 | Outpatient (CLI) | payer OTHER | LOC: BMCIMAGING 10:35 | PROVIDERS: ATTEND Physician Assistant Surgical | DX: M51.86 Other intervertebral disc disorders, lumbar region (principal); M51.87 Other intervertebral disc disorders, lumbosacral region; Z98.1 Arthrodesis status ==

== ENCOUNTER → 2017-01-05 | Outpatient (CLI) | payer OTHER | LOC: BHFA 10:45 | PROVIDERS: ATTEND Internal Medicine Cardiovascular Disease | DX: I31.3 Pericardial effusion (noninflammatory) (principal) ==

== ENCOUNTER → 2017-01-27 | Outpatient (CLI) | payer OTHER | LOC: BMCIMAGING 11:06 | PROVIDERS: ATTEND Physician Assistant | DX: Z09 Encounter for follow-up examination after completed treatment for conditions other than malignant neoplasm (principal); Z98.890 Other specified postprocedural states; M51.36 Other intervertebral disc degeneration, lumbar region ==

== ENCOUNTER → 2017-02-26 | Outpatient (CLI) | payer OTHER | LOC: FIMAGING 15:03 | PROVIDERS: ATTEND Physical Medicine & Rehabilitation | DX: S73.192A Other sprain of left hip, initial encounter (principal); N40.0 Benign prostatic hyperplasia without lower urinary tract symptoms; K57.30 Diverticulosis of large intestine without perforation or abscess without bleeding ==

== ENCOUNTER → 2017-04-19 | Outpatient (CLI) | payer OTHER | LOC: BMCIMAGING 10:29 | PROVIDERS: ATTEND Physician Assistant | DX: Z09 Encounter for follow-up examination after completed treatment for conditions other than malignant neoplasm (principal); Z98.1 Arthrodesis status ==

== ENCOUNTER → 2017-06-21 | Outpatient (CLI) | payer OTHER ==
[~2017-06-21] MED LIST changes: +GADOBUTROL 10 ML VIAL IVP ONE; -IOPAMIDOL (ISOVUE 370) 100 ML BTL IV ONE
== END ==
LOC: FIMAGING 12:53
PROVIDERS: ATTEND Psychiatry & Neurology Neurology
DX: G31.9 Degenerative disease of nervous system, unspecified (principal)
CPT/HCPCS: 70553; A9585

== ENCOUNTER → 2017-10-18 | Outpatient (CLI) | payer OTHER | LOC: BMCIMAGING 09:46 | PROVIDERS: ATTEND Neurological Surgery | DX: T84.038A Mechanical loosening of other internal prosthetic joint, initial encounter (principal); M47.896 Other spondylosis, lumbar region; M43.16 Spondylolisthesis, lumbar region ==

== ENCOUNTER → 2018-01-11 | Outpatient (CLI) | payer OTHER | LOC: BHFA 14:00 | PROVIDERS: ATTEND Internal Medicine | DX: I31.3 Pericardial effusion (noninflammatory) (principal) ==

== ENCOUNTER → 2018-01-17 | Outpatient (CLI) | payer OTHER | LOC: BHFA 13:15 | PROVIDERS: ATTEND Internal Medicine Cardiovascular Disease | DX: Z01.810 Encounter for preprocedural cardiovascular examination (principal); I31.3 Pericardial effusion (noninflammatory) ==

== ENCOUNTER → 2018-03-20 | Outpatient (CLI) | payer OTHER | LOC: FIMAGING 12:15 | PROVIDERS: ATTEND Urology | DX: N40.1 Benign prostatic hyperplasia with lower urinary tract symptoms (principal); K57.90 Diverticulosis of intestine, part unspecified, without perforation or abscess without bleeding; I70.0 Atherosclerosis of aorta; I70.8 Atherosclerosis of other arteries ==

== ENCOUNTER 2018-04-07 05:54 | Observation (INO) | payer OTHER ==
[2018-04-07] MEDS ORDERED: LR 1,000 ML IV ONE (06:06)
[2018-04-07] MEDS ORDERED: levOFLOXACIN 500 MG/DEXTROSE 100 ML IV ONE ×2 (07:00→07:29)
[2018-04-07] MEDS ORDERED: LIDOCAINE 2% JELLY 20 ML (UROJECT) ONE (07:02)
[2018-04-07] MEDS ORDERED: MIDAZOLAM 2 MG/2 ML VIAL IVP ONE (07:12)
--- NOTE | 2018-04-07 07:12 | PDANEPAE ---
ANE History of Present Illness BPH here for TURP ANE Past Medical History - Cardiovascular History Hx Hypertension: No Hx Arrhythmias: No Hx Chest Pain: No Hx Coronary Artery / Peripheral Vascular Disease: No Hx CHF / Valvular Disease: No Hx Palpitations: No Cardiovascular History Comment: post spinal surgery developed pericardial effusion - Pulmonary History Hx COPD: No Hx Asthma/Reactive Airway Disease: No Hx Recent Upper Respiratory Infection: No Hx Oxygen in Use at Home: No Hx Sleep Apnea: No Sleep Apnea Screening Result - Last Documented: Negative - Neurologic History Hx Cerebrovascular Accident: No Hx Seizures: No Hx Dementia: No Neurologic History Comment: remote hx migraines -ended 2011. - Endocrine History Hx Diabetes: No - Renal History Hx Renal Disorders: No Renal History Comment: Kidney stone 2006 - Liver History Hx Hepatic Disorders: No - Neurological & Psychiatric Hx Hx Neurological and Psychiatric Disorders: No Neurological / Psychiatric History Comment: occ low back pain w/R leg pain- since July 2015. minimal pain last 4 wks. - Cancer History Hx Cancer: Yes Cancer History Comment: skin CA - Congenital Disorder History Hx Congenital Disorders: No - GI History Hx Gastrointestinal Disorders: Yes Gastrointestinal History Comment: diverticulosis. lower GI gleed. 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 bilat shoulder pain - Chronic Pain History Chronic Pain: Yes (back,R leg) - Surgical History Prior Surgeries: knee surgeries 's,. Esophogus repair for Boerhaave Syndrome . colonoscopy 2013, endoscopy. tonsillectomy child. spinal surgery 10/25 ANE Review of Systems Review of Systems: - Exercise capacity METS (RN): 4 METS ANE Patient History - Allergies Allergies/Adverse Reactions: No Known Allergies Allergy (Verified 11/07/16 23:11) - Home Medications Home medications: home medication list seen and reviewed Home Medications: LORazepam [Ativan (*)] 09/28/16 [Last Taken 04/06/18] Omeprazole [Prilosec 20 mg] 09/28/16 [Last Taken 04/06/18] Zolpidem Tartrate [Ambien 10 mg] 09/28/16 [Last Taken 04/06/18] traZODone [traZODONE 100MG (*)] 09/28/16 [Last Taken 04/06/18] Gabapentin [Neurontin 300 MG (*)] 01/19/18 [Last Taken 04/06/18] Iron 01/19/18 [Last Taken 1 Week Ago ~03/31/18] Meloxicam 01/19/18 [Last Taken 2 Months Ago ~02/04/18] Metamucil 01/19/18 [Last Taken 04/06/18] Multivitamin 01/19/18 [Last Taken 1 Week Ago ~03/31/18] Keflex 02/03/18 [Last Taken 04/06/18] - NPO status NPO Status: no food or drink >8 hours NPO Since - Liquids (Date): 04/06/18 NPO Since - Liquids (Time): 22:00 NPO Since - Solids (Date): 04/06/18 NPO Since - Solids (Time): 19:00 - Anes Hx Anes Hx: no prior problems - Smoking Hx Smoking Status: Former smoker - Alcohol Use Alcohol Use: Occasionally - Family Anes Hx Family Anes Hx: none Family Hx Anesthesia Complications: none ANE Labs/Vital Signs - Vital Signs Blood Pressure: 123/76 Heart Rate: 66 Respiratory Rate: 18 O2 Sat (%): 91 Height: 180.34 cm Weight: 72.575 kg ANE Physical Exam - Airway Neck exam: FROM Mallampati Score: Class 2 Mouth exam: normal dental/mouth exam - Pulmonary Pulmonary: no respiratory distress, clear to auscultation - Cardiovascular Cardiovascular: regular rate and rhythym, no murmur, rub, or gallop - ASA Status ASA Status: II ANE Anesthesia Plan Anesthesia Plan: GA w LMA
[2018-04-07] MEDS ORDERED: LIDOCAINE 2% 100 MG/5 ML SYR ONE (07:16)
[2018-04-07] MEDS ORDERED: PROPOFOL 200 MG/20 ML VIAL ONE (07:16)
[2018-04-07] MEDS ORDERED: fentaNYL 100 MCG/2 ML INJ ONE ×2 (07:16→08:07)
[2018-04-07] MEDS ORDERED: OPIUM/BELLADONNA ALKALO SUPP PR ONE (07:16)
--- NOTE | 2018-04-07 07:27 | PDHPUP ---
History & Physical Update H&P update statement: This history and physical update is based on an assessment of the patient which was completed after admission or registration (within 24 hours), but prior to the surgery/procedure. H&P update: H&P reviewed & patient examined, no change in patient's condition since H&P completed
[2018-04-07] MEDS ORDERED: HYDROmorphONE/DILAUDID 1 MG/ML INJ IVP PRN (07:29)
[2018-04-07] MEDS ORDERED: OPIUM/BELLADONNA ALKALO SUPP PR PRN (08:00)
[2018-04-07] MEDS ORDERED: ACETAMINOPHEN 500 MG TAB PO PRN (09:21)
[2018-04-07] MEDS ORDERED: oxyCODONE IR 5 MG TAB PO PRN (09:21)
[2018-04-07] MEDS ORDERED: PROMETHAZINE HCL 25 MG/ML INJ IVP PRN (09:21)
[2018-04-07] MEDS ORDERED: ONDANSETRON 4 MG/2 ML VIAL IVP PRN (09:21)
[2018-04-07] MEDS ORDERED: NALOXONE HCL 0.4 MG/ML INJ IVP PRN (09:21)
[2018-04-07] MEDS ORDERED: HYDROCODONE/APAP 5/325 TAB PO PRN (09:21)
[2018-04-07] MEDS ORDERED: fentaNYL 100 MCG/2 ML INJ IVP PRN (09:21)
--- NOTE | 2018-04-07 09:31 | POSTOPPROG ---
Post Op Note Date of Operation: 04/07/18 Surgeon: Hazel Smith Anesthesiologist: Lucero Anesthesia: GET(General Endotracheal) Pre-op Diagnosis: BPH w LUTs Post-op Diagnosis: same Indication: trilobar hypertrophy, recurrent UTIs Procedure: cysto, TURP in saline Findings: trilobar hypertrophy Inf/Abcess present in the surg proc area at time of surgery?: No Depth: Superfical (Skin SQ) EBL: 100-500 Complications: nont, pt tolerated procedure well Drains: Other (faith catheter) Specimen(s): prostate chips
[2018-04-07] MEDS ORDERED: HYDROCODONE/APAP 5/325 TAB ONE (10:16)
[2018-04-07] MEDS: D5W LR 1,000 ML IV SCH (11:44)
[2018-04-07] MEDS: SENNOSIDES/DOCUSATE SODIUM TAB PO SCH ×2 (12:05→22:03)
[2018-04-07] MEDS: HYDROCODONE/APAP 5/325 TAB PO PRN ×2 (17:12→17:15)
[2018-04-07] MEDS: ONDANSETRON 4 MG/2 ML VIAL IVP PRN (18:01)
[2018-04-07] MEDS ORDERED: ACETAMINOPHEN 500 MG TAB ONE (20:08)
[2018-04-07] MEDS ORDERED: CALCIUM CARBONATE 500 MG CHEWABLE TAB PO PRN (20:39)
[2018-04-07] MEDS ORDERED: traZODone 100 MG TAB PO SCH (21:00)
[2018-04-07] MEDS ORDERED: PANTOPRAZOLE SODIUM 40 MG VIAL IVP ONE (21:00)
[2018-04-07] MEDS ORDERED: LORazepam 1 MG TAB PO SCH (21:00)
[2018-04-07] MEDS ORDERED: ZOLPIDEM TARTRATE 5 MG TAB PO SCH (21:00)
[2018-04-07] MEDS: ACETAMINOPHEN 500 MG TAB PO PRN (22:01)
[2018-04-08] MEDS: ONDANSETRON 4 MG/2 ML VIAL IVP PRN ×2 (02:41→10:52)
[2018-04-08] MEDS ORDERED: levOFLOXACIN 500 MG/DEXTROSE 100 ML IV ONE (07:00)
[2018-04-08] MEDS: ACETAMINOPHEN 500 MG TAB PO PRN (07:50)
[2018-04-08] MEDS: SENNOSIDES/DOCUSATE SODIUM TAB PO SCH (07:52)
--- NOTE | 2018-04-08 08:14 | GOP ---
[f rep st] OPERATIVE REPORT DATE OF OPERATION: 04/07/2018 SURGEON: Hazel Smith MD ANESTHESIOLOGIST: Dr. Barker. PREOPERATIVE DIAGNOSIS: Benign prostatic hypertrophy with lower urinary tract symptoms and recurrent urinary tract infections. POSTOPERATIVE DIAGNOSIS: Benign prostatic hypertrophy with lower urinary tract symptoms and recurrent urinary tract infections. PROCEDURE PERFORMED: Cystoscopy and a transurethral resection of prostate in saline. FINDINGS: Trilobar hypertrophy. SPECIMENS: Prostate chips. ESTIMATED BLOOD LOSS: 150 mL. INDICATIONS: Trilobar hypertrophy with recurrent UTIs. DESCRIPTION OF PROCEDURE: He was taken back to the cystoscopy suite, placed on the cystoscopy table in a supine position. General anesthesia induced without complication. Time-out performed. Core measures satisfied including placement of a Marcelo Hugger, SCDs and administration of Levaquin antibiotics. He was brought to the end of the table, placed in a dorsal lithotomy position. All pressure points padded. Genitalia draped and prepped in a standard surgical fashion with Betadine. Alex sounds were sequentially used to gently dilate the urethral meatus up to 28F. Then A 26F rigid visual obturator easily cannulated the urethral meatus and was advanced atraumatically into the bladder past the prostatic urethra, where I again saw the large central zone tissue that protruded into the bladder and also extended back to the veru. I looked for the ureteral orifices, but due to the obstructing median lobe, I was unable to see them and started careful resection. I started the initial resection at 5 in the 7 o'clock position. Once I resected some of the median lobe, I was able to see the right and left ureteral orifices and made sure to maintain a distance away from these to not violate these structures with the resection. I took down the posterior prostate first from bladder neck to just proximal to the veru. I made sure not to include the veru in the resection, as to not resect the urinary sphincter. I then resected the left lateral lobe and then the right lateral lobe and then some anterior tissue. His main obstructive tissue was the central zone tissue that was taken down. Hemostasis was maintained throughout with electrocautery and the [employer] evacuator facilitated removing the chips and all the prostate chips were sent to Pathology. At the end of the procedure, he was wide open when sitting at the veru. All the prostate chips had been removed and hemostasis was very good. The ureteral orifieces were verified to be untouched and healthy. The veru had remained untouched with the resectoscope as well. The scope was removed. Lidocaine jelly instilled into urethra, then 24F [address] way faith placed, balloon inflated and the continuous bladder irrigation was initiated. A belladonna and opium was placed per rectum. Irrigant was cleare/light pink. I considered the procedure complete. He was awoken from anesthesia and transferred to PACU in good condition. He will be admitted overnight on continuous bladder irrigation. COMPLICATIONS: None. The patient tolerated the procedure well. DRAINS: A Faith. INDICATIONS FOR PROCEDURE: The patient presented to my office with recurrent UTIs and urinary retention and cystoscopy demonstrated trilobar hypertrophy. He had a large median lobe protruding into his bladder and I discussed with him that a transurethral resection of the prostate would be the recommended treatment option. The risks were discussed including bleeding, infection, pain , injury to the urethra, bladder, ureters, need for subsequent procedures, retrograde ejaculation, risk of urethral stricture and bladder neck contracture. He understood all these risks and agreed to proceed. /[id number]/MODL MTDD
[2018-04-08] MEDS ORDERED: ACETAMINOPHEN/ASA/CAFFEINE 1 EACH TAB PO PRN (10:31)
[2018-04-08] MEDS: D5W LR 1,000 ML IV SCH (10:40)
[2018-04-08] MEDS ORDERED: TAMSULOSIN HCL 0.4 MG CAP PO SCH (11:30)
[2018-04-08] MEDS ORDERED: METOCLOPRAMIDE 10 MG/2 ML VIAL IVP PRN (11:57)
[2018-04-08] MEDS: GABAPENTIN 300 MG CAP PO SCH ×2 (13:28→18:34)
[2018-04-08 16:20] VITALS: BP 124/71
[2018-04-08] MEDS ORDERED: LIDOCAINE 2% JELLY 20 ML (UROJECT) UR ONE (16:30)
--- NOTE | 2018-04-08 16:56 | SOAPPROG ---
SOAP Progress Note Assessment/Plan: Assessment:s/p TURP Post op GONZALEZ - possibly 2/2 not taking gabapentin? Nausea - now resolved Plan: Voiding trial. Check post void residuals after each void. Encouraged diet, ambulation. If unable to void good volumes, faith will need to be replaced. 04/08/18 16:52 Subjective: Post TURP CBI clear GONZALEZ and nausea, then emesis x 1, now feeling much better. Wants to go walking and dc later this afternoon. Objective: Vital Signs Temp Pulse Resp BP Pulse Ox 36.8 C 76 16 124/71 H 96 04/08/18 16:00 04/08/18 16:00 04/08/18 16:00 04/08/18 16:00 04/08/18 16:00 04/07/18 04/08/18 04/09/18 05:59 05:59 05:59 Intake Total 1250 Output Total 600 3055 Balance 650 -3055 Gen NAD A&O CV regular Lungs Normal effort Abd soft Ext warm bladder filled w sterile NS, faith removed. He voided about 300ml on own, clear, light red. - Pending Discharge Pending Discharge Within 24 Hours: Yes Pending Discharge Date: 04/09/18 Pending Discharge Time: 11:00 ICD10 Worksheet Patient Problems: Problems Problem Status Onset Lumbar stenosis Acute Pericardial effusion Acute
--- NOTE | 2018-04-12 03:55 | GDS ---
[f rep st] DISCHARGE SUMMARY Urologic Surgery Dictation Note. DIAGNOSIS: Benign prostatic hypertrophy with lower urinary tract symptoms. PROCEDURE: Transurethral resection of prostate in saline. HOSPITAL COURSE: The patient underwent the procedure above without any complications. He was admitt ed on continuous bladder irrigation, which was weaned overnight and into the morning of the next day. The next day, his urine was clear with moderate CBI. CBI was stopped and the Miller catheter was re moved after a fill and pull. He then voided several times on his own. His postvoid residual was acc eptable and he was discharged home later in the afternoon, early evening without a Miller catheter wit h instructions to call the urologist should he have any difficulty voiding. PHYSICAL EXAM ON DISCHARGE: Please see the SOAP note in the system. MEDICATIONS: Please see the medications listed in the system. FOLLOWUP: Will be in 3 days for check of a postvoid residual. /[id number]/MODL
== END 2018-04-08 18:52 | disposition home or self-care (01) ==
LOC: FSGY 05:54 → F3E 07:30
PROVIDERS: ADMIT Urology; ATTEND Urology
PROC: 0VB08ZZ Excision of Prostate, Via Natural or Artificial Opening Endoscopic (ICD-10-PCS; principal; 2018-04-07 07:30)
DX: N40.1 Benign prostatic hyperplasia with lower urinary tract symptoms (principal); R33.8 Other retention of urine; Z87.440 Personal history of urinary (tract) infections; R51 Headache; Z87.19 Personal history of other diseases of the digestive system
CPT/HCPCS: 52601; 88305; J1170; J1956; J2001; J2250; J2405; J2704; J3010

== ENCOUNTER → 2018-05-11 | Outpatient (CLI) | payer OTHER | LOC: FIMAGING 08:19 | PROVIDERS: ATTEND Internal Medicine | DX: I72.3 Aneurysm of iliac artery (principal); I77.811 Abdominal aortic ectasia ==

== ENCOUNTER → 2018-08-02 | Outpatient (CLI) | payer OTHER | LOC: FIMAGING 17:40 ==